=== PATIENT | male | born 1945 | race Caucasian/White ===

== ENCOUNTER → 2018-01-23 11:48 | Outpatient (CLI) | payer MEDICARE, OTHER, SELFPAY ==
--- NOTE | 2018-01-23 | DI.RAD.S_ITS ---
PROCEDURE: XR SHOULDER RT MIN 2V INDICATIONS: RIGHT SHOULDER PAIN TECHNIQUE: 3 views of the shoulder were acquired. COMPARISON: None. FINDINGS: Bones: No acute fractures or dislocations. There is a well-corticated triangular shaped bone density superior to the a.c. joint, possibly old fracture. Hypertrophic changes at the margins of the a.c. joint. Degenerative glenohumeral joint disease associated with marginal bone spur over the humeral head medially. No suspicious bony lesions. Visualized ribs appear intact. Median sternotomy. Soft tissues: No suspicious soft tissue calcifications. IMPRESSION: 1. Osteoarthritis glenohumeral and acromioclavicular joints. 2. Chronic bony density superior to the a.c. joint. Dictated by: Brayan Neumann M.D. on 01/23/2018 at 13:01 Approved by: Brayan Neumann M.D. on 01/23/2018 at 13:04
== END ==
PROVIDERS: Family Provider Family Medicine; PCP Family Medicine; Visit Provider Family Medicine
DX: M19.011 Primary osteoarthritis, right shoulder (principal); M25.511 Pain in right shoulder
CPT/HCPCS: 73030

== ENCOUNTER → 2018-09-02 10:56 | Outpatient (CLI) | payer MEDICARE, SELFPAY ==
--- NOTE | 2018-09-02 | DI.RAD.S_ITS ---
PROCEDURE: XR SHOULDER RT MIN 2V INDICATIONS: RT SHOULDER PAIN TECHNIQUE: 3 views of the shoulder were acquired. COMPARISON: [facility], CR, XR SHOULDER RT MIN 2V, 01/23/2018, 11:35. FINDINGS: Bones: No fractures or dislocations. No suspicious bony lesions. Visualized ribs appear intact. Sternal wires are present including a fractured superior wire, unchanged. There is moderate acromioclavicular degenerative narrowing with an adjacent ossification possibly related to spur or old fracture. Moderate glenohumeral narrowing is present. Soft tissues: No suspicious soft tissue calcifications. IMPRESSION: Stable appearance of glenohumeral and acromioclavicular degenerative narrowing. Dictated by: Sherrill Villanueva M.D. on 09/02/2018 at 13:52 Approved by: Sherrill Villanueva M.D. on 09/02/2018 at 13:54
== END ==
PROVIDERS: PCP Family Medicine; Visit Provider Family Medicine
DX: M25.511 Pain in right shoulder (principal); M19.011 Primary osteoarthritis, right shoulder
CPT/HCPCS: 73030

== ENCOUNTER → 2019-03-26 11:22 | Outpatient (CLI) | payer MEDICARE, SELFPAY ==
--- NOTE | 2019-03-26 | DI.MRI.S_ITS ---
PROCEDURE: MR SHOULDER RT WO CON INDICATIONS: Pain in right shoulder TECHNIQUE: Noncontrast oblique coronal T2 fast spin echo with fat saturation, oblique sagittal T1 spin echo and T2 fast spin echo with fat saturation, axial T1 spin echo and T2 fast spin echo with fat saturation through the shoulder. COMPARISON: [facility], CR, XR SHOULDER RT MIN 2V, 09/02/2018, 11:02. FINDINGS: Image quality: Diagnostic. Rotator cuff: There is a small full-thickness tear just proximal to the footprint of the distal supraspinatus tendon that measures approximately 1.2 cm in transverse dimension. There is mild retraction by approximately 9 mm. Heterogeneity and irregularity with increased signal is noted involving the remainder of the supraspinatus tendon. The anterior and posterior fibers of the supraspinatus tendon are probably intact. Thickening and increased signal is noted involving the infraspinatus tendon with partial-thickness tearing extending along its myotendinous junction. There is low-grade bursal surface partial-thickness tearing involving the subscapularis tendon with corresponding tendinopathy. The teres minor tendon is intact. No significant atrophy of the rotator cuff muscles is evident. Bones and bursae: No acute fracture, dislocation, or suspicious osseous lesion is identified involving the osseous structures of the right shoulder. Moderate degenerative changes of the glenohumeral joint are present with an associated moderate-sized joint effusion. There are severe degenerative changes of the acromioclavicular joint. Fluid is contained within the joint space. Large amount of fluid is also contained within the subacromial subdeltoid bursa. Capsule and soft tissues: Evaluation of the labrum and the glenohumeral ligaments is suboptimal without intra-articular contrast. Thinning and heterogeneity of the labrum probably is related to chronic labral degeneration. No detached large labral tears are evident. No large. Labral cysts are identified. The long head of the biceps tendon is prominently thinned and not definitely seen attaching to the superior glenoid. A chronic full-thickness tear is suspected. No acute injuries are suspected involving the glenohumeral ligaments. IMPRESSION: 1. Small full-thickness tear involving the distal supraspinatus tendon with corresponding tendinopathy. 2. Low-grade partial-thickness tearing and tendinopathy of the infraspinatus and subscapularis tendons. There is an interstitial/delaminating component of the infraspinatus tendon partial thickness tear. 3. Severe degenerative changes of the acromioclavicular joint with a large amount of fluid contained within the subacromial subdeltoid bursa. Please correlate clinically to exclude the possibility of subacromial impingement. 4. Probable chronic full-thickness tear of the long head of the biceps tendon. 5. Moderate degenerative changes of the glenohumeral joint with degenerative labral tearing. 6. Moderate sized glenohumeral joint effusion. Dictated by: Duane Galarza M.D. on 03/26/2019 at 15:49 Approved by: Duane Galarza M.D. on 03/26/2019 at 15:56
== END ==
PROVIDERS: PCP Family Medicine; Visit Provider Physical Medicine & Rehabilitation Pain Medicine
DX: M25.511 Pain in right shoulder (principal); M75.121 Complete rotator cuff tear or rupture of right shoulder, not specified as traumatic; S43.491A Other sprain of right shoulder joint, initial encounter; M25.411 Effusion, right shoulder
CPT/HCPCS: 73221

== ENCOUNTER 2019-05-16 13:20 | Day surgery (SDC) | payer MEDICARE, SELFPAY ==
--- NOTE | 2019-05-16 | PATH_ITS ---
[facility] Accession Number: [id number] . 01 Material submitted: . colon - SIGMOID POLYP 2MM . 01 Clinical history: . SCREENING COLONOSCOPY . 02 Diagnosis: Sigmoid Colon, 2 mm, Polyp: Hyperplastic polyp. MRV 05/19/2019 1005 Local . 02 Electronically signed: . Rafael Brown MD, PhD, Pathologist NPI- [id number] . 01 Gross description: . SIGMOID POLYP 2MM: Received in formalin is 1 fragment(s) of hernandez, soft tissue measuring 0.2 x 0.2 x 0.2 cm submitted entirely in 1 cassette(s) /[facility] 05/16/2019 2240 Local . 02 Pathologist provided ICD-10: K63.5 . 02 CPT . 287223 Performed at: 01 [facility] [address] [place] [address], [place], [place] [id number] MD Isaac Johnson MD Phone: [phone] Performed at: 02 [facility] [address] [place], [place] [id number] MD Muna Ruth MD Phone: [phone]
--- NOTE | 2019-05-16 06:05 | PM.HP.1 ---
History of Present Illness History of Present Illness Date Patient Seen: 05/16/19 Chief complaint: 45838 SCREENING COLONOSCOPY Narrative: 74 year old male comes in today for consideration of a screening colonoscopy. Two previous colonoscopies, 2001 and 2012. 2001 records are not available at time of dictation. Last colonoscopy on 05/07/2013 significant for a 2-3 mm hepatic flexure hyperplastic polyp and ascending tubular adenoma. Sigmoid diverticulosis also noted. There have been no lower GI symptoms suggesting disease such as change in bowel habits, bleeding, abdominal pain or anemia. No family history of colon cancer or colon polyps. Overall health issues have been stable, including no major cardiac events for at least 6 weeks. His best friend of rectal cancer. PCP: Dr. Garcia Past medical history: Coronary artery disease, status post CABG [place], 2015, ECHO 03/11/2016, EF 65-70% Hyperlipidemia Esophageal reflux Prediabetes Melanoma, back Actinic keratosis Lumbar disc herniation with radiculopathy Left sacroiliitis History of herpes zoster Mitral valve prolapse History of hyperplastic colon polyps BMI 23.76 Past Surgical history: CABG x5, 03/16/2016 Family history: Father: Heart disease, CVA, prostate cancer Mother: Kidney failure Siblings: obstructive sleep apnea, alcoholism Social history: , retired. Fourteen years of education. Medications: Metoprolol 25 mg p.o. b.i.d. Atorvastatin 80 mg p.o. q.h.s. Flomax 0.4 mg p.o. q.day Omeprazole 20 mg p.o. q.day Aspirin 81 mg, 2 tabs p.o. q.day CoQ10 300 mg p.o. b.i.d. Allergies: Metformin, causes dyspnea Meds Home Medications and Allergies Home Medications Medication Instructions Recorded Confirmed Type lansoprazole [Prevacid] 30 mg PO QDAY #0 03/08/16 05/16/19 History aspirin 81 mg PO Q DAY #0 03/11/16 05/16/19 History metoprolol tartrate 25 mg PO BID #0 05/19/16 05/16/19 History tamsulosin [Flomax] 0.4 mg PO QDAY #0 05/19/16 05/16/19 History atorvastatin 40 mg PO BEDTIME 05/16/19 05/16/19 History Review of Systems Review of Systems ROS Unobtainable: All systems reviewed & are unremarkable except as noted in HPI and below Exam Narrative Exam Narrative: GENERAL: Alert and oriented, appearing stated age and in no acute distress. HEENT: Head normocephalic/atraumatic. LUNGS: Clear to ausculation bilaterally, no wheezes, rhonchi or rales. CV: Normal S1 and S2 with regular rate and rhythm, no audible murmurs, rubs or gallops. ABDOMEN: Soft, non-tender, non-distended, no organomegaly. Positive bowel sounds. EXTREMITIES: No clubbing, cyanosis, or edema. NEURO: Cranial nerves II through XII grossly intact, no focal deficits. PSYCH: Alert and oriented x 3. SKIN: No concerning lesions. Assessment & Plan Assessment & Plan narrative: 1. History of colon polyps 2. Screening for colon cancer 3. History of sigmoid diverticulosis Plan for colonoscopy. The nature and character of the procedure as well as anticipated results were discussed. The possibility of not completing the procedure was also discussed. Possible complications including aspiration pneumonia, bleeding, perforation and reaction to medications either for sedation or preparation and missed lesions were discussed. Questions were answered and proceeding to the colonoscopy was elected. Informed consent signed. I sincerely appreciate the referral allowing me to participate in this patient's care. Please contact me with any questions or concerns. Time Spent With Patient Time with patient: less than 15 minutes
--- NOTE | 2019-05-16 06:19 | PM.OP.ENDO ---
Operative Date/Time/Diagnoses Date of procedure: 05/16/19 Time of procedure: 14:49 Pre-op diagnosis: 1. History of colon polyps 2. Screening for colon cancer 3. Diverticulosis, sigmoid Post-op diagnosis: other (Sigmoid polyp x1, 2 mm, removed with cold biopsy forceps) Procedure & Clinicians Study performed: Colonoscopy Same procedure as scheduled: Yes Indications: 1. History of colon polyps 2. Screening for colon cancer 3. Diverticulosis, sigmoid Surgeon: Beatriz Silverman Procedure Notes SCOAP/Timeout: 14:49 Procedure in detail: ENDOSCOPIST: Beatriz Silverman MD Sedation RN: Nicole Lopez RN Sedation start time: 2:49 p.m. Sedation end time: 3:12 p.m. PROCEDURE: Colonoscopy with cold biopsy INDICATIONS: 1. History of colon polyps 2. Screening for colon cancer 3. Sigmoid diverticulosis MEDICATION: Levsin 0.125 mg sublingual, incremental doses of Versed and fentanyl until appropriate level sedation achieved. ASA CLASS: 2 CECAL WITHDRAWAL TIME: 11 minutes COMPLICATIONS: None. EXTENT OF PROCEDURE: Cecum. QUALITY OF PREP: Good with portions of liquid stool. PROCEDURE: Prior to insertion of the colonoscope, a digital rectal examination was accomplished with circumferential palpation of the distal rectal mucosa without significant findings being noted. The high-definition pediatric colonoscope was passed into the rectum in the usual fashion and advanced over to the cecum without difficulty. The ileocecal valve, appendiceal stoma, and medial wall all could be inspected and no abnormalities were seen. ASCENDING COLON: As the colonoscope was withdrawn, care was taken to expose and inspect the haustral folds and no abnormalities were seen. HEPATIC FLEXURE: Normal no polyps, diverticula or other abnormalities. TRANSVERSE COLON: Normal no polyps, diverticula or other abnormalities. DESCENDING COLON: Normal no polyps, diverticula or other abnormalities. SIGMOID COLON: 2 mm polyp removed with cold biopsy forceps, moderate sigmoid diverticulosis, noninflamed. RECTUM: Normal. J maneuver was produced. There was no significant perianal disease. The J maneuver was broken. The remainder of the rectum was inspected and there was no external hemorrhoid disease. The scope was withdrawn. IMPRESSION: 1. Sigmoid polyp x1, 2 mm, removed with cold biopsy forceps 2. Sigmoid diverticulosis, moderate PLAN: 1. Follow-up in clinic status post pathology results. The possibility of a missed lesion including a malignancy has been discussed with the patient previously. Potential alarm symptoms have been discussed and should be reported immediately. Scope withdrawal time: 11 minutes Sedation minutes: 23 Findings: diverticulosis and polyp (sigmoid, 2 mm) Specimen(s): other (Sigmoid polyp x 1, 2 mm) Complications: none Impression: As above. Post-procedure Recommendations: Will call with biopsy results Follow up: weeks (2) Disposition: PACU
[2019-05-16] MEDS: HYOSCYAMINE 0.125 MG TABLET PO (13:53)
[2019-05-16 13:56] VITALS: BP 140/84; PULSE 83; RESP 16; TEMP 36.4; O2SAT 96; BMI 21.5
[2019-05-16] MEDS: SODIUM CHLORIDE 0.9% 1,000 ML 200 ML IV (14:09)
[2019-05-16] MEDS: fentaNYL 250 MCG/5 ML INJ IV (15:13)
[2019-05-16] MEDS: MIDAZOLAM 5 MG/5 ML VIAL IV (15:13)
[2019-05-16 15:16] VITALS: BP 130/71; PULSE 31; RESP 15; TEMP 36.8; O2SAT 97
[2019-05-16 15:21] VITALS: BP 126/75; PULSE 62; RESP 12; O2SAT 97
[2019-05-16 15:27] VITALS: BP 120/78; PULSE 66; RESP 12; O2SAT 97
[2019-05-16 15:37] VITALS: BP 130/82; PULSE 61; RESP 15; O2SAT 97
[2019-05-16 16:04] VITALS: BP 143/74; PULSE 64; RESP 16; TEMP 36.3; O2SAT 97
== END 2019-05-16 16:17 | disposition home or self-care (01) ==
PROVIDERS: PCP Family Medicine; Visit Provider Student in an Organized Health Care Education/Training Program
PROC: 0DJD8ZZ Inspection of Lower Intestinal Tract, Via Natural or Artificial Opening Endoscopic (ICD-10-PCS; CPT 45378; principal; 2019-05-16 15:00)
DX: Z12.11 Encounter for screening for malignant neoplasm of colon (principal); Z86.010 Personal history of colon polyps; I25.2 Old myocardial infarction; Z95.1 Presence of aortocoronary bypass graft; I25.10 Atherosclerotic heart disease of native coronary artery without angina pectoris; K63.5 Polyp of colon; K57.30 Diverticulosis of large intestine without perforation or abscess without bleeding
CPT/HCPCS: 45380; J2250; J3010

== ENCOUNTER → 2020-02-09 13:29 | Outpatient (CLI) | payer MEDICARE, SELFPAY ==
--- NOTE | 2020-02-09 | DI.ECHO.S_ITS ---
[facility]---------+ [facility] +---------+ : : [address] [place] : : : : [id number] : : : : Phone: [phone] Echocardiogram Report + + :Name: ADELAIDA MARTINEZ Study Date: 02/09/2020 Height: 70 in : :[facility] Weight: 160 lb : : Gender: Male BSA: 1.9 m2 : :: 1945 Age: 74 yrs BP: 144/86 mmHg: :Reason For Study: Mitral Insufficiency : :Ordering Physician: DIANE, : :MARIA ALEJANDRA Performed By: Alesha Magallanes : :Referring: MARIA ALEJANDRA CONTRERAS : + + Interpretation Summary Left ventricular systolic function remains well-preserved and unchanged from the previous study with an estimated ejection fraction of 60 to 65% with akinesis of the proximal portion of the inferior wall without other wall motion abnormality. Left ventricular volumes remain normal and unchanged. Diastolic function is challenging to assess but left ventricular filling pressures may be somewhat higher compared to the previous study. Otherwise, there has been no significant change. The right ventricle appears normal and unchanged from the previous study. Right ventricular systolic pressure is estimated at 32 mmHg with a CVP of 8 mmHg and is likely unchanged from the previous study. There is severe left atrial enlargement and moderately severe right atrial enlargement, both progressive since the previous study. There continues to be prolapse of the posterior leaflet of the mitral valve producing at least moderate mitral regurgitation with a regurgitant jet directed anteroseptally that appears more prominent compared to the previous study. There is mild to moderate tricuspid regurgitation that is mildly more prominent compared to the previous study.. The ascending aorta is mildly enlarged but unchanged from the previous exam. Procedure: A two-dimensional transthoracic echocardiogram with color flow and Doppler was performed. The study quality was technically adequate. Comparison is made with the echocardiogram of 03/11/2016. The patient was in sinus bradycardia with heart rates between 60-62 bpm during the exam. Left Ventricle: The left ventricle is normal in size and wall thickness. Overall left ventricular systolic function is preserved. The ejection fraction is estimated to be 60-65%. There is akinesis of the proximal third of the inferior wall that is unchanged from the previous study and no other focal wall motion abnormalities. Diastolic function could not be accurately assessed due to contradictory data. Left ventricular filling pressures may be higher compared to the previous study. Otherwise, there is been no significant change since the previous exam. Right Ventricle: The right ventricle is normal in size and function. This is unchanged compared to the previous study. Atria: The left atrium is severely dilated. Both atria have mildly increased in size since the prior echo exam. The right atrium is moderate to severely dilated. There is no Doppler evidence for an interatrial shunt. Mitral Valve: The mitral valve leaflets appear mildly thickened, but open well. There is prolapse of the posterior mitral valve leaflet(s). There is moderate mitral regurgitation. There is an eccentric jet of mitral regurgitation that is directed anteroseptally. This is mild progressive compared to the previous study. Aortic Valve: The aortic valve is trileaflet. The aortic valve opens well. There is no aortic valve stenosis. No aortic regurgitation is present. Tricuspid Valve: The tricuspid valve is normal in structure and function. There is mild to moderate tricuspid regurgitation. This is mildly more prominent compared to the previous study. The right ventricular systolic pressure is estimated to be at least 32 mmHg based on an estimated right atrial pressure of 8 mm Hg. This is unchanged compared to the previous study. Pulmonic Valve: The pulmonic valve leaflets are thin and pliable; valve motion is normal. There is a trace or physiologic amount of pulmonic regurgitation. Great Vessels: The aortic root is normal size. The ascending aorta is mildly enlarged. This is unchanged compared to the previous study. The IVC is dilated (diameter is greater than 2.1 cm) yet it collapses greater than 50% with a sniff. This suggests a right atrial pressure of 8 mm Hg. Pericardium/ Pleura There is no pericardial effusion. There is no pleural effusion. MMode/2D Measurements & Calculations LVIDd: 5.3 cm LVOT diam: 2.1 cm LVIDs: 3.3 cm Ao root diam: 3.2 cm FS: 37.3 % asc Aorta Diam: 3.5 cm EPSS: 0.60 cm Ao Arch Diam (Prox Trans): 2.8 cm IVSd: 0.99 cm LVPWd: 1.0 cm LV parson. diameter/BSA (cm/m^2): 2.8 LV sys. diameter/BSA (cm/m^2): 1.7 LA A2 area: 26.0 cm2 RA long axis: 6.3 cm LA A4 area: 27.0 cm2 RA area: 25.5 cm2 LA length (vol): 6.3 cm RA vol: 88.1 ml LA vol: 94.7 ml RA : 46.4 ml/m2 LA vol index: 49.9 ml/m2 IVC diam: 2.7 cm RVD1 (basal): 3.5 cm Doppler Measurements & Calculations Ao V2 max: 144.8 cm/sec LVOT Max Jame: 96.1 cm/sec Ao V2 mean: 95.5 cm/sec LV V1 max P.7 mmHg Ao max P.4 mmHg LV V1 VTI: 20.3 cm Ao mean P.2 mmHg CANDACE(I,D): 2.4 cm2 Ao V2 VTI: 29.7 cm CANDACE(V,D): 2.3 cm2 sev ratio: 0.68 CANDACE indexed to BSA (cm^2/m^2): 1.3 MV E max jame: 68.3 cm/sec TR max jame: 245.1 cm/sec MV A max jame: 56.7 cm/sec TR max P.0 mmHg MV E/A: 1.2 PA V2 max: 67.6 cm/sec Med Peak E' Jame: 5.9 cm/sec PA V2 mean: 42.4 cm/sec E/E' med: 11.5 PA mean P.85 mmHg Lat Peak E' Jame: 8.2 cm/sec PA pr(Accel): 44.7 mmHg E/E' lat: 8.3 E/e' average: 9.9 MV dec time: 0.24 sec MR ERO: 0.25 cm2 MR PISA: 3.5 cm2 SV(LVOT): 71.3 ml MR flow rate: 149.4 cm3/sec MR PISA radius: 0.74 cm Reading Physician:02:27 PM
== END ==
PROVIDERS: PCP Family Medicine; Referring Provider Family Medicine; Visit Provider Hospitalist
DX: I08.1 Rheumatic disorders of both mitral and tricuspid valves (principal); I77.89 Other specified disorders of arteries and arterioles
CPT/HCPCS: 93306

== ENCOUNTER → 2020-02-10 06:36 | Outpatient (CLI) | payer MEDICARE, SELFPAY ==
[2020-02-10 09:05] LABS: Cholesterol 125 mg/dL (140-199); HDL Cholesterol 37 mg/dL (40-60); LDL Cholesterol Calculated 65 mg/dL (<100); Triglycerides 114 mg/dL (35-150)
== END ==
PROVIDERS: PCP Family Medicine; Referring Provider Hospitalist; Visit Provider Hospitalist
DX: I25.10 Atherosclerotic heart disease of native coronary artery without angina pectoris (principal); E78.5 Hyperlipidemia, unspecified
CPT/HCPCS: 36415; 80061

== ENCOUNTER 2021-01-03 01:07 | Emergency (ER) | payer MEDICARE, SELFPAY ==
[2021-01-03 01:40] VITALS: BP 185/89; PULSE 66; RESP 18; TEMP 36.5; O2SAT 98; BMI 50.5
--- NOTE | 2021-01-03 02:04 | DI.CT.S_ITS ---
PROCEDURE: CT KIDNEY URETER BLADDER (KUB) COMPARISON: None. INDICATIONS: flank pain FINDINGS: Nonobstructive 6 mm right mid renal collecting system calculus. No evidence of hydroureter or bladder calculus. Elsewhere the examination shows no acute disease. The remaining solid and hollow organs are well visualized considering absence of both oral and intravenous contrast. IMPRESSION: Nonobstructing 6 mm right renal collecting system stone, no sign of ureteral stone. No source of acute onset abdominal pain is identified. The history of pain is predominantly left-sided and a ear in areas tract stone on the left is not found. Dictated by: Waldo Graham M.D. on 01/03/2021 at 11:32 Approved by: Waldo Graham M.D. on 01/03/2021 at 11:34
[2021-01-03] MEDS: KETOROLAC 30 MG/ML VIAL 15 MG IV (02:15)
[2021-01-03 02:17] LABS: Add Manual Diff / Slide Review NO; Basophils Absolute Auto 100 /uL (0-100); Basophils Percent Auto 0.9 % (0-2); Eosinophils Absolute Auto 200 /uL (0-450); Eosinophils Percent Auto 3.4 % (2-4); Hematocrit 46.3 % (41-53); Hemoglobin 15.8 g/dL (13.5-17.5); Lymphocytes Absolute Auto 1600 /uL (1100-4500); Lymphocytes Percent Auto 22.6 % (25-40); Mean Corpuscular Hemoglobin 31.4 PG (26-34); Mean Corpuscular Volume 92.3 fL (80-100); Monocytes Absolute Auto 500 /uL (0-900); Monocytes Percent Auto 6.3 % (3-14); Neutrophils Absolute Auto 4800 /uL (1500-7000); Neutrophils Percent Auto 66.8 % (50-75); Platelet Count 144 X10^3/uL (150-400); Red Blood Cell Count 5.02 X10^6/uL (4.5-5.9); Red Cell Distribution Width 13.5 % (11.6-14.8); White Blood Cell Count 7.2 X10^3/uL (4.5-11.0)
--- NOTE | 2021-01-03 02:21 | ED.ABDPAIN ---
HPI - Abdominal Pain General Chief Complaint: Abdominal Pain Stated Complaint: Back and hip pain, unable to urinate Time Seen by Provider: 01/03/21 01:11 Source: patient Mode of arrival: Ambulatory Limitations: no limitations History of Present Illness HPI narrative: 75-year-old male nonsmoker with history of lumbar radiculopathy prostate trouble and hypertension as well as hyperlipidemia presents with a chief complaint of severe left-sided pain that radiates from his lower back around his flank into his groin and at times down his left leg. He has a history of lumbar radiculopathy and states this on some levels feels similar. He had some difficulty in urinating earlier and had pain and a full bladder but has since urinated and feels much better. He is not dizzy nor weak or lightheaded. He denies any fever or chills. He denies chest pain or shortness of breath. He states his pain is worse with motion and improves with rest. He denies any footdrop, lower extremity weakness, recent travel, blood thinners or fever. Related Data Home Medications Medication Instructions Recorded Confirmed lansoprazole 30 mg capsule,delayed 30 mg PO QDAY #0 03/08/16 05/16/19 release (Prevacid) aspirin 81 mg tablet,delayed 81 mg PO Q DAY #0 03/11/16 05/16/19 release metoprolol tartrate 25 mg tablet 25 mg PO BID #0 05/19/16 05/16/19 tamsulosin 0.4 mg capsule (Flomax) 0.4 mg PO QDAY #0 05/19/16 05/16/19 atorvastatin 40 mg tablet 40 mg PO BEDTIME 05/16/19 05/16/19 Previous Rx's Medication Instructions Recorded gabapentin 300 mg capsule 300 mg PO BEDTIME #14 cap 01/03/21 (Neurontin) methylprednisolone 4 mg tablets in See Rx Instructions .ROUTE 01/03/21 a dose pack (Medrol (Chidi)) .COMPLEX #21 ea oxycodone 5 mg tablet 5 mg PO Q4-6H PRN #10 tab 01/03/21 Allergies Allergy/AdvReac Type Severity Reaction Status Date / Time No Known Drug Allergies Allergy Verified 01/03/21 01:48 Review of Systems Review of Systems Narrative: GENERAL: Denies chills, fatigue, malaise, fever, sweats. HEENT: Denies sinus pain, ear pain, sore throat, difficulty swallowing, dizziness. RESPIRATORY: Denies dyspnea, cough, wheezing, hemoptysis, sputum. CARDIOVASCULAR: Denies chest pain, palpitations, orthopnea, edema, GASTROINTESTINAL: Denies nausea, vomiting, abdominal pain, diarrhea, constipation, melena. : See HPI MUSCULOSKELETAL: denies weakness, joint pain, or bony pain SKIN: Denies rash, skin lesions, or other NEUROLOGIC: See HPI. PSYCHIATRIC: No concerning psychosocial issues. 12 point review of systems is negative except for those stated above Patient History Social History household members: spouse Smoking Status: Never smoker Smoking Status: Never smoker alcohol intake frequency: holidays/special occasions only Substance Use Type: does not use Exam Narrative Exam Narrative: GENERAL: [75] year old patient appears stated age. Well-developed patient, in mild distress. Obviously uncomfortable HEAD: Atraumatic. Normocephalic. EYES: Pupils equal round and reactive. Extraocular motions intact. No scleral icterus. No injection or drainage. ENT: Nose without bleeding, purulent drainage. Throat without erythema, tonsillar hypertrophy or exudate. Airway patent. NECK: Trachea midline. Non tender CARDIOVASCULAR: Regular rate and rhythm without murmurs, gallops, or rubs. RESPIRATORY: Clear to auscultation. Breath sounds equal bilaterally. No wheezes, rales, or rhonchi. GASTROINTESTINAL: Abdomen soft, non-tender, nondistended. EXTREMITIES: No edema or joint tenderness. BACK: warp dyeing vat tender but free of any obvious external abnormalities. Patient exam notes decreased range of motion and muscle spasm, but no CVA tenderness, or vertebral point tenderness. There are no symptoms of cauda equina such as saddle anesthesia, and decreased reflexes, decreased sensation or strength. NEURO: AOx3. SKIN: No rash or erythema of visible areas Initial Vital Signs Initial Vital Signs: Vital Signs Temperature 97.7 F 01/03/21 01:40 Pulse Rate 66 01/03/21 01:40 Respiratory Rate 18 01/03/21 01:40 Blood Pressure 185/89 H 01/03/21 01:40 Pulse Oximetry 98 01/03/21 01:40 Course Orders Ordered: ED Orders 01/03/21 01:35 Complete Blood Count AUTO DIFF Stat Comprehensive Metabolic Panel Stat Lipase Stat 01/03/21 02:04 CT kidney ureter bladder (KUB) Stat Lactated Ringer's (Lactated Ringers) 1,000 mls @ 150 mls/hr IV CONT FERNANDO Last Admin: 01/03/21 02:35 Dose: 150 mls/hr Documented by: MANASA Discontinued Medications Dexamethasone (Dexamethasone 10 Mg/Ml Vial) 6 mg IV NOW ONE Stop: 01/03/21 02:05 Last Admin: 01/03/21 02:36 Dose: 6 mg Documented by: MANASA Sodium Chloride (Normal Saline 0.9%) 1,000 mls @ 150 mls/hr IV CONT FERNANDO Ketorolac Tromethamine (Ketorolac 30 Mg/Ml Vial) 15 mg IV NOW ONE Stop: 01/03/21 02:05 Last Admin: 01/03/21 02:15 Dose: 15 mg Documented by: MANASA Vital Signs Vital signs: Vital Signs - 8 hr 01/03/21 01:40 Temperature 97.7 F Pulse Rate 66 Respiratory Rate 18 Blood Pressure 185/89 H Pulse Oximetry 98 MDM - Abdominal Pain Lab Data Result diagrams: 01/03/21 01:35 01/03/21 01:35 Labs: Lab Results 01/03/21 01/03/21 Range/Units 01:35 01:35 WBC 7.2 (4.5-11.0) X10^3/uL RBC 5.02 (4.5-5.9) X10^6/uL Hgb 15.8 (13.5-17.5) g/dL Hct 46.3 (41-53) % MCV 92.3 (80-100) fL MCH 31.4 (26-34) PG MCHC 34.0 (30-36) % RDW 13.5 (11.6-14.8) % Plt Count 144 L (150-400) X10^3/uL Neut % (Auto) 66.8 (50-75) % Lymph % (Auto) 22.6 L (25-40) % Ware % (Auto) 6.3 (3-14) % Eos % (Auto) 3.4 (2-4) % Baso % (Auto) 0.9 (0-2) % Neut # (Auto) 4800 (6925-6791) /uL Lymph # (Auto) 1600 (2533-3095) /uL Ware # (Auto) 500 (0-900) /uL Eos # (Auto) 200 (0-450) /uL Baso # (Auto) 100 (0-100) /uL Sodium 140 (137-145) mmol/L Potassium 3.9 (3.4-5.1) mmol/L Chloride 108 H (98-107) mmol/L Carbon Dioxide 24 (22-32) mmol/L BUN 23 H (9-20) mg/dL Creatinine 0.77 (0.66-1.25) mg/dL Estimated GFR > 60.0 (>60) mL/min BUN/Creatinine Ratio 29.9 H (6-22) Glucose 136 H (80-110) mg/dL Calcium 9.3 (8.4-10.2) mg/dL Total Bilirubin 0.5 (0.2-1.3) mg/dL AST 29 (17-59) IU/L ALT 24 (<50) IU/L Alkaline Phosphatase 121 (38-126) U/L Total Protein 7.0 (6.3-8.2) g/dL Albumin 4.3 (3.5-5.0) g/dL Globulin 2.7 (1.7-4.1) g/dL Albumin/Globulin Ratio 1.6 (1.0-2.8) Lipase 107 (23-300) U/L Imaging Data CT scan - abdomen/pelvis: Radiologist's Impression: Nephrolithiasis of anterior right kidney up to 6 mm no right hydronephrosis, mild mucosal thickening of the gastric mucosa, normal appendix, his colonic fecal burden MDM Narrative Medical decision making narrative: Multiple diagnoses considered including kidney stone, pyelonephritis, both thought unlikely given lack of findings on CT or urine. Patient has longstanding history of musculoskeletal trouble and with pain starting in back and radiating down into his legs seems to be the most likely cause. He has no neurologic red flags such as saddle anesthesia, lower extremity weakness depressed reflexes or other signs of cauda equina. Return precautions given and questions answered to his apparent satisfaction Discharge Plan Departure Patient Disposition: Home Clinical Impression: Acute left lumbar radiculopathy Instructions: DI for Lumbar Radiculopathy Activity Restrictions/Additional Instructions: *You have been diagnosed with [lumbar radiculopathy] *What to do: *Please continue to take your regular medications as directed. [x ] New medication prescriptions sent to your pharmacy: [ [facility]] [ ] New medication written as a paper prescription [ ] No new medications given *Please follow up with your primary care provider in 2-3 days, call for an appointment. Let them know you were seen in the Emergency Department and that we ask that you be seen in follow up. We will electronically transmit a record of today's note if your PCP is in our system *If you do not have a primary care provider please contact the [facility] Resource line at [phone]. They will ask some questions about your medical history and help get you set up with a doctor in the community. *Return to Emergency Department if you should have any new, worsening or concerning symptoms, such as [fever greater than 101 F, shaking chills, worsening pain, persistent vomiting or other bothersome symptoms] Prescriptions: New oxycodone 5 mg tablet 5 mg PO Q4-6H PRN (Reason: pain) Qty: 10 RF: 0 gabapentin [Neurontin] 300 mg capsule 300 mg PO BEDTIME Qty: 14 RF: 0 methylprednisolone [Medrol (Chidi)] 4 mg tablets,dose pack See Rx Instructions .ROUTE .COMPLEX Qty: 21 RF: 0 No Action lansoprazole [Prevacid] 30 MG capsule,delayed release(DR/EC) 30 mg PO QDAY Qty: 0 RF: 0 aspirin 81 MG tablet,delayed release (DR/EC) 81 mg PO Q DAY Qty: 0 RF: 0 tamsulosin [Flomax] 0.4 MG capsule,extended release 24hr 0.4 mg PO QDAY Qty: 0 RF: 0 metoprolol tartrate 25 MG tablet 25 mg PO BID Qty: 0 RF: 0 atorvastatin 40 mg Tablet 40 mg PO BEDTIME RF: 0 Referrals: Brock Garcia MD [Primary Care Provider] -
[2021-01-03 02:22] LABS: Alanine Aminotransferase 24 IU/L (<50); Albumin 4.3 g/dL (3.5-5.0); Albumin Globulin Ratio 1.6 (1.0-2.8); Alkaline Phosphatase 121 U/L (38-126); Aspartate Aminotransferase 29 IU/L (17-59); BUN Creatinine Ratio 29.9 (6-22); Bilirubin Total 0.5 mg/dL (0.2-1.3); Blood Urea Nitrogen 23 mg/dL (9-20); Calcium 9.3 mg/dL (8.4-10.2); Carbon Dioxide 24 mmol/L (22-32); Chloride 108 mmol/L (98-107); Estimated Glomerular Filt Rate > 60.0 mL/min (>60); Globulin 2.7 g/dL (1.7-4.1); Glucose 136 mg/dL (80-110); HEMOLYSIS 25 (0-50); Lipase 107 U/L (23-300); Potassium 3.9 mmol/L (3.4-5.1); Sodium 140 mmol/L (137-145)
[2021-01-03] MEDS: LACTATED RINGERS 1,000 ML 150 ML IV (02:35)
[2021-01-03] MEDS: DEXAMETHASONE 10 MG/ML VIAL 6 MG IV (02:36)
[2021-01-03] MEDS: OXYCODONE/APAP 5/325 PREPACK 1 BOTTLE MISC (04:53)
[2021-01-03 05:03] VITALS: BP 166/80; PULSE 66; RESP 14; O2SAT 96
== END 2021-01-03 05:05 | disposition home or self-care (01) ==
PROVIDERS: Emergency Provider Emergency Medicine; PCP Family Medicine
DX: M54.16 Radiculopathy, lumbar region (principal)
CPT/HCPCS: 36415; 74176; 80053; 83690; 85025; 96361; 96374; 96375; 99284; J1100; J1885

== ENCOUNTER → 2021-01-20 11:34 | Outpatient (CLI) | payer MEDICARE, SELFPAY ==
--- NOTE | 2021-01-20 11:34 | DI.MRI.S_ITS ---
PROCEDURE: MR LUMBAR SPINE WO CON INDICATIONS: Low back pain TECHNIQUE: Noncontrast sagittal T1 spin echo and T2 fast echo, sagittal STIR, axial T1 and T2 fast spin echo through the lumbar spine. In cases with scoliosis, additional coronal T2 fast spin echo may be performed. COMPARISON: [facility] [place], [place], XR LUMBAR SPINE WITH OLBIQUES PLUS FLEXION EXTENSION, 01/12/2021, 9:52. FINDINGS: Image quality: Excellent. Alignment and Curvature: There is trace L1-L2 and L2-L3 retrolisthesis. There is mild L4-L5 anterolisthesis. Bone Marrow: Mar reactive endplate changes noted adjacent to the L5-S1 disc. No acute vertebral body compression fractures. Spinal Cord: Conus medullaris terminates at the L1 level. Visualized cord demonstrates normal signal and size. Paraspinous Soft Tissues: No paravertebral masses. T12-L1: Loss of disc signal. Mild, diffuse disc bulge. No central stenosis. No neural foraminal narrowing. No neural compression. L1-L2: Loss of disc signal. Mild, diffuse disc bulge. Mild bilateral facet hypertrophy. Mild narrowing of the central canal. Mild to moderate bilateral neural foraminal narrowing. No neural compression L2-L3: Loss of disc signal. Mild, diffuse disc bulge. Small central disc protrusion. Mild bilateral facet hypertrophy. Moderate to severe narrowing of the central canal. Moderate bilateral neural foraminal narrowing. No neural compression. L3-L4: Loss of disc signal. Moderate, diffuse disc bulge. Moderate bilateral facet hypertrophy. Severe narrowing of the central canal with compression of the traversing nerve roots of the cauda equina. Moderate to severe bilateral neural foraminal narrowing with slight compression of the exiting L3 nerve roots. L4-L5: Loss of disc signal. Mild, diffuse disc bulge. Moderate bilateral facet hypertrophy. Moderate narrowing of the central canal. Moderate bilateral neural foraminal narrowing. No neural compression. Fissure noted in the posterior annulus. L5-S1: Loss of disc signal. Mild, diffuse disc bulge. Moderate bilateral facet hypertrophy. Mild narrowing of the central canal. Severe right and mild left neural foraminal narrowing with compression of the exiting right L5 nerve root. Fissures noted in the posterior annulus. IMPRESSION: 1. Multilevel degenerative disc disease. 2. Multilevel facet arthropathy. 3. Severe L3-L4 central canal narrowing with compression of the nerve roots of the cauda equina. 4. Severe right L5-S1 neural foraminal narrowing with compression of the exiting right L5 nerve root. Moderate to severe bilateral L3-L4 neural foraminal narrowing with slight compression of the exiting bilateral L3 nerve roots. Dictated by: Lynne Hicks MD, PhD on 01/20/2021 at 14:53 Approved by: Lynne Hicks MD, PhD on 01/20/2021 at 14:59
== END ==
PROVIDERS: PCP Family Medicine; Referring Provider Physical Medicine & Rehabilitation Pain Medicine; Visit Provider Physical Medicine & Rehabilitation Pain Medicine
DX: M54.5 Low back pain (principal); M51.36 Other intervertebral disc degeneration, lumbar region; M51.37 Other intervertebral disc degeneration, lumbosacral region; M47.816 Spondylosis without myelopathy or radiculopathy, lumbar region; M47.817 Spondylosis without myelopathy or radiculopathy, lumbosacral region; M48.061 Spinal stenosis, lumbar region without neurogenic claudication; M48.07 Spinal stenosis, lumbosacral region
CPT/HCPCS: 72148

== ENCOUNTER → 2021-05-17 10:03 | Outpatient (CLI) | payer MEDICARE, SELFPAY ==
--- NOTE | 2021-05-17 15:49 | DIAB.INIT ---
Addendum entered by Micaela Israel 05/17/21 16:03: If pt wants to check BG, provided BG goals per ADA: FBG 80-130 mg/dl and 1-2 hr pc <180 mg/dl Original Note: Initial Diabetes Education Assessment Name: Fantasma Romo Date: 05/17/21 Time: 10 Dx: Type 2 Diabetes Provider: Radha Klein Learning Style: watching, hands-on Fantasma presents today for initial DM education with his , Bruna. States he has had prediabetes for a number of years but was recently diagnosed with DM. Endorses FH of DM with paternal grandmother and maternal aunts. States he lost 30# after heart surgery and learning a lot about diet with the cardiac rehab [facility] program. Current reported weight is 153#. Reports UBW 150-160#. States he is allergic to Metformin (SOB). No current DM medications. Interested in nutrition education and BG monitoring info. Brought a meter from 2016 today. Also has questions about carb counting and recipes. Diet recall indicates high carb intake with raisin bran cereal in the morning (100g CHO). Inconsistent protein intake. Has been using whole milk because it has less sugar. Uses higher fiber carbs usually, ie whole grain, whole wheat. Interested in DM ed classes. Physical Activity: States he tries to stay active with home projects. Tries to walk as much as possible. Occasional beach walk. Tries to park far to increase steps. Goes hunting 1 or more times per year. Looking into getting an elliptical. Self-Monitoring Blood Glucose: Brought an old meter and is wanting instruction on use. Discussed how strips are and meter likely needs to be replaced for increased accuracy, if he wants to check BG. Provided SMBG demonstration, BG was 132 mg/dL prior to lunch. Diabetes Medications: None Past Medical History: STY, HTN, CA bypass, [place], HLD, CAD s/p CABG, reflux, melanoma, colonic polyp, sholder pain, actinic keratosis, lumbar disc herniation, urinary freq, sacroilitis, lower back pain, herpes zoster, mitral valve prolapse Pertinent Labs: HgA1c: 6.9% Intervention: This participant was very receptive. Provided appropriate educational handouts. Discussed the following topics: Completed intake assessment. Discussed barriers to care. Pathophysiology of type 2 diabetes HgA1c, its correlation to blood glucose numbers, Demonstration and education SMBG Self-monitoring, how often, and when to check. Suggested checking at different times to evaluate meals Plate Method, impact of macronutrients on blood sugar, meal timing, carbohydrate counting, pairing macronutrients and spreading out carbohydrates for better blood glucose management General recommended servings for carbohydrates at meals and snacks Role of physical activity and following provider guidelines for safety Created SMART goals for patient self-care and success. Goals: Check BG 1 x per day Keep cereal to one cup Add protein to meals and snacks Follow-up: PATRICIA DUVALL follow-up in 2-3 weeks Micaela Israel RDN, [facility] Certified Diabetes Care and Geological Drafter P: [phone] Thank you for this referral
== END ==
PROVIDERS: PCP Family Medicine; Referring Provider Family Medicine; Visit Provider Family Medicine
DX: E11.9 Type 2 diabetes mellitus without complications (principal)
CPT/HCPCS: G0108

== ENCOUNTER → 2021-05-31 09:59 | Outpatient (CLI) | payer MEDICARE, SELFPAY ==
--- NOTE | 2021-05-31 16:51 | DIAB.MNT ---
Initial Diabetes Medical Nutrition Therapy Assessment Name: Fantasma Romo Date: 05/31/21 Time: [id number] Dx: Type II Diabetes Fantasma presents with his Bruna today. States he is hard of hearing and forgot his hearing aids. He is able to hear me as long as speak directly toward him. Has many nutrition questions today. States they have close family friends that have been encouraging them to make nutrition choices off, what sounds like, a fad diet book. Fantasma has questions about whether he can eat fruit, what fat type to choose for milk, and whether he can have whole grain bread in moderation. States he has switched to 2% milk from whole milk. Was under the impression that there were more carbs in the lower fat milk. Diet recall indicates small portions and low carb intake (since changing breakfast-- reduced portion to 1c cereal now. Oatmeal may be 1 or more cups). States he is always hungry, which may be due to the small portions and no snacks. They are conscious of their salt intake. Though they have been eating refried beans recently (canned and high in Na). Having fish 1 or more x per week, which is a challenge for him. Attributes the big change in hgA1c this year to high carb intake over the summer, ie pies, baked beans with burgers and potatoes, etc. Likes to bake with sugar substitute (muffins sweetened with trulia, banana, and small amt honey) Diet Recall: B: cheese, eggs, toast with avocado OR oatmeal with milk OR cereal x 1c L: slice bread with cheese, vegetables or smoothie (20g CHO) D: 1.5c beans with vegetables OR 2-3oz protein with 1/3c brown rice Anthropometrics: Ht: 5'10 Wt: 153# (last visit) Weight history: reports UBW of 150-160# Physical Activity: Plans to roll picker elliptical this week. No current program. Self-Monitoring Blood Glucose: Not currently checking. Bruna reports she really wants him to check to see how food impacts his BG. He is open to this, but was originally planning to wait until PCP visit in July. Diabetes Medications: None Past Medical History: STY, HTN, CA bypass, [place], HLD, CAD s/p CABG, reflux, melanoma, colonic polyp, sholder pain, actinic keratosis, lumbar disc herniation, urinary freq, sacroilitis, lower back pain, herpes zoster, mitral valve prolapse Pertinent Labs: HgA1c: 6.9% Nutrition Rx: Carbohydrates: Meal:45g Snack: 15-30g Nutrition Diagnosis: - Nutrition and food related knowledge deficit r/t new dx T2DM aeb HgA1c 6.9% and pt report - Inconsistent protein intake r/t nutrition knowledge deficit aeb diet recall Intervention: This participant was very receptive. Provided appropriate educational handouts. Discussed the following topics: Completed intake assessment. Discussed barriers to care. HgA1c and potential reasons for the elevation fad diets vs nutrition therapy recs. Satisfying hunger by increasing complex carbs in moderation or lean proteins or adding balanced snacks He can continue low carb diet if desired, but may want to consider increasing intake moderately for satiety. self-monitoring: if he decides to check BG sooner he can call PCP. Plate Method, impact of macronutrients on blood sugar, meal timing, carbohydrate counting, label reading, pairing macronutrients and spreading out carbohydrates for better blood glucose management Recommended servings for carbohydrates at meals and snacks Heart health nutrition, alternative refried beans recipe (homemade) Brainstormed appropriate meal plan based on food preferences Role of physical activity and following guidelines for safety Created SMART goals for patient self-care and success. Goals: Check BG 1 x per day if desired- in progress Keep cereal to one cup - met Add protein to meals and snacks- in progress Stick with lower fat milk- new Add nuts to oatmeal- new Try measuring oatmeal after cooked- new Follow-up: PATRICIA DUVALL follow-up in July. Fantasma would like to attend DM ed class series. Classes begin again in July. He also has the opportunity for additional 1:1 follow-up but would like to wait until next year. Encouraged him to call with any questions prior to that time. Micaela Israel RDN, [facility] Certified Diabetes Care and Size Stamper P: [phone] Thank you for this referral
== END ==
PROVIDERS: PCP Family Medicine; Referring Provider Family Medicine; Visit Provider Family Medicine
DX: E11.9 Type 2 diabetes mellitus without complications (principal); Z71.3 Dietary counseling and surveillance
CPT/HCPCS: 97802

== ENCOUNTER → 2021-07-05 09:15 | Outpatient (CLI) | payer MEDICARE, SELFPAY ==
--- NOTE | 2021-07-06 10:07 | DIAB.FU ---
Diabetes Education Class Series: Diabetes and Nutrition Name: Fantasma Romo Date: 07/05/21 Time: 665a-12p Dx: Type II Diabetes Fantasma presents with his , Bruna, for DM ed classes. States he feels that he and his are already implementing a lot of these nutrition recs. Reports he was unaware of how to read a food label correctly prior to today. Reports subtracting protein from carbs to determine carb amt. States they are currently looking for an exercise machine. Class topics covered: ? Debunk nutrition myths and discuss how to sustain healthy eating long-term through moderation and variety ? Define macronutrients and determine their impact on blood sugars ? Discuss macronutrient pairing, Plate Method, and carb counting ? Review general recommendations for carbohydrates ? Practice label reading ? Discuss the role of fiber in diabetes and provide examples of sources ? Review heart health nutrition: fats, fiber, and sodium ? Determine recommendations for grocery shopping and eating out ? Discuss alcohol recommendations ? Review the role of substitute sugars in diabetes management ? Set SMART goals Goal Set: Read food labels for net carbs (total carbs minus fiber). Follow-up: Diabetes Physiology and Medication Class in one week Micaela Israel RDN, [facility] Registered Dietitian, Certified Diabetes Care and Commercial Intelligence Manager [phone] [email or web address]
== END ==
PROVIDERS: PCP Family Medicine; Referring Provider Family Medicine; Visit Provider Family Medicine
DX: E11.9 Type 2 diabetes mellitus without complications (principal)
CPT/HCPCS: G0109

== ENCOUNTER → 2021-07-12 09:25 | Outpatient (CLI) | payer MEDICARE, SELFPAY ==
--- NOTE | 2021-07-12 14:54 | DIAB.FU ---
Diabetes Education Class Series: Diabetes Physiology and Medications Name: Fantasma Romo Date: 07/12/21 Time: [id number] Fantasma presents today for class with his for support. States blood sugars have been very well managed. Also reports working on his blood pressure with provider. Class topics covered: ? Diabetes pathophysiology ? Discuss different types of diabetes ? Review criteria for diagnosing diabetes ? Review HgA1c measurement and associated blood sugars ? Review blood sugar monitoring safety, technique, and goals ? Discuss ways to reduce complications associated with diabetes, includes microvascular and macrovascular complications ? Review diabetes medications types, action, and side effects ? Health care visits recommended for people with T2DM ? Immunization recommended for people with T2DM ? SMART goals review Goal Set: Fantasma would like to check his BG twice per week: FBG and pc Follow-up: Diabetes Lifestyle and Ongoing Support Class next week Micaela Israel RDN, [facility] Registered Dietitian, Certified Diabetes Care and Regulatory Lead [phone] [email or web address]
== END ==
PROVIDERS: PCP Family Medicine; Referring Provider Family Medicine; Visit Provider Family Medicine
DX: E11.9 Type 2 diabetes mellitus without complications (principal)
CPT/HCPCS: G0109

== ENCOUNTER → 2021-07-19 09:24 | Outpatient (CLI) | payer MEDICARE, SELFPAY ==
--- NOTE | 2021-07-19 15:55 | DIAB.FU ---
Diabetes Education Class Series: Diabetes Lifestyle Change and Ongoing Support Name: Fantasma Romo Date: 07/19/21 Time: [id number] Fantasma presents today with his as support. States he feels that DSME has opened his eyes to how to better manage DM. States he has been using the snack list as a reference and choosing heart healthier fats. Reports his diet is going very well. Does endorse difficulty with getting a physical activity program going. Still looking to purchase workout equipment. Class topics covered: ? Discuss the difference between physical activity and exercise ? Determine physical activity benefits and impact on diabetes ? Review physical activity recommendations and safety ? Discuss emergency preparedness ? Discuss diabetes and emotions (diabetes burnout/distress) ? Review and practice stress management techniques ? Review support groups and community resources ? Discuss the role of family support in diabetes care ? What is going well? Challenges of diabetes? ? Set SMART goals Follow-up: 1:1 visit follow-up 08/23/21 Micaela Israel RDN, [facility] Registered Dietitian, Certified Diabetes Care and Director Instructional Material [phone] [email or web address]
== END ==
PROVIDERS: PCP Family Medicine; Referring Provider Family Medicine; Visit Provider Family Medicine
DX: E11.9 Type 2 diabetes mellitus without complications (principal)
CPT/HCPCS: G0109

== ENCOUNTER → 2021-08-23 09:52 | Outpatient (CLI) | payer MEDICARE, SELFPAY ==
--- NOTE | 2021-08-23 13:36 | DIAB.MNTFU ---
Follow-up Diabetes Medical Nutrition Therapy Assessment Name: Fantasma Romo Date: 08/23/21 Time: 10 Dx: Type II Diabetes Fantasma presents with Bruna, his , for follow-up regarding T2DM. States his HgA1c has reduced to 6.4%. He also reports a recent addition to medications, lisinopril. Endorses well managed BP at home. Diet recall does indicate high carb at breakfast (cereal, toast, with low carb yogurt), very low carb/moderate protein at lunch, and balanced dinner. States he is often hungry after lunch. Also has questions about exercise equipment and keto diet. States close friends are doing keto. He is not interested in trying, but is curious of what it is exactly. States these friends have encouraged high saturated fat intake and low carb. Also has questions about spam sodium content for hunting. Also has questions regarding how much fruit to eat. Anthropometrics: Ht: 5'10 Wt: 155# (reported) Weight history: reports UBW of 150-160# Physical Activity: No program. Continues to have questions about purchasing exercise equipment. States they have purchased a bowflex machine before that was not what they thought it was. Now worried about ordering something without seeing it in person. Problem is that they have a difficult time finding one in person. Would like an elliptical. 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 Bruna reports she has left this decision up to Fantasma. Self-Monitoring Blood Glucose: Checks in frequently. Fasting often in range. Did have one elevated pc readings of 200 after a large meal. Diabetes Medications: None Past Medical History: STY, HTN, CA bypass, MS, HLD, CAD s/p CABG, reflux, melanoma, colonic polyp, sholder pain, actinic keratosis, lumbar disc herniation, urinary freq, sacroilitis, lower back pain, herpes zoster, mitral valve prolapse Pertinent Labs: initial: HgA1c: 6.9%; new reported: 6.4% Nutrition Rx: Carbohydrates: Meal:45g Snack: 15-30g Nutrition Diagnosis: - Nutrition and food related knowledge deficit r/t new dx T2DM aeb HgA1c 6.9% and pt report- improved - Inconsistent protein intake r/t nutrition knowledge deficit aeb diet recall - improved - Physical inactivity r/t difficulty choosing elliptical machine aeb pt report- new Intervention: This participant was very receptive. Provided appropriate educational handouts. Discussed the following topics: Meal timing, pairing macronutrients and spreading out carbohydrates for better blood glucose management Breakfst ideas Heart health nutrition: fats, fiber, and sodium Keto vs moderation/sustainability for them Meal/snack planning Physical activity plan and progress Choosing the elliptical that works for them Created SMART goals for patient self-care and success. Goals: Stick with lower fat milk- met Add nuts to oatmeal- met Try measuring oatmeal after cooked- not met order elliptical- new Move toast to mid morning snack to reduce breakfast carbs- new Enjoy one fruit with lunch prn- new Follow-up: PATRICIA DUVALL follow-up prn. Fantasma seems to be managing his DM very well. Encouraged him and Bruna to call or message me with any follow-up needs or questions. They agreed to this plan. Micaela Israel RDN, [facility] Certified Diabetes Care and Business Information Consultant P: [phone] Thank you for this referral
== END ==
PROVIDERS: PCP Family Medicine; Referring Provider Family Medicine; Visit Provider Family Medicine
DX: E11.9 Type 2 diabetes mellitus without complications (principal); Z71.3 Dietary counseling and surveillance
CPT/HCPCS: 97803

== ENCOUNTER → 2021-09-05 13:58 | Outpatient (CLI) | payer MEDICARE, SELFPAY ==
[2021-09-05 17:14] LABS: COVID19 -Nasal RAPID Negative (Negative)
== END ==
PROVIDERS: PCP Family Medicine; Visit Provider Family Medicine Sleep Medicine
DX: Z20.822 Contact with and (suspected) exposure to COVID-19 (principal)
CPT/HCPCS: 87635; C9803

== ENCOUNTER → 2021-09-06 12:38 | Outpatient (CLI) | payer MEDICARE, SELFPAY ==
--- NOTE | 2021-09-06 | DI.US.S_ITS ---
PROCEDURE: US CAROTID DOPPLER BI INDICATIONS: Atherosclerotic heart disease of red devil coronary a TECHNIQUE: Color and pulse Doppler interrogation was performed of both carotid systems, with image documentation and velocity measurements. COMPARISON: None. FINDINGS: Stenosis calculations are based on SRU (Society of Radiologists in Ultrasound) criteria. Right side: Brachial blood pressure: 165/88 mm Hg. Common carotid artery peak systolic velocity: 90 cm/sec. Internal carotid artery peak systolic velocity: 81 cm/sec. Internal carotid artery end diastolic velocity: 30 cm/sec. External carotid artery peak systolic velocity: 70 cm/sec. ICA/CCA peak systolic ratio: 0.9 . Contreras scale imaging description: Mild bifurcation and proximal internal carotid artery plaque. Percent internal carotid artery stenosis: Less than 50% . Vertebral artery: Flow direction is antegrade. Left side: Brachial blood pressure: 170/85 mm Hg. Common carotid artery peak systolic velocity: 87 cm/sec. Internal carotid artery peak systolic velocity: 90 cm/sec. Internal carotid artery end diastolic velocity: 29 cm/sec. External carotid artery peak systolic velocity: 69 cm/sec. ICA/CCA peak systolic ratio: 1.03 . Contreras scale imaging description: Mild bifurcation and internal carotid artery plaque. Percent internal carotid artery stenosis: Less than 50% . Vertebral artery: Flow direction is antegrade. IMPRESSION: Mild bilateral internal carotid artery stenotic disease with less than 50% stenosis bilaterally. Dictated by: Zak Pickard M.D. on 09/06/2021 at 16:53 Approved by: Zak Pickard M.D. on 09/06/2021 at 16:55
== END ==
PROVIDERS: PCP Family Medicine; Referring Provider Nurse Practitioner Acute Care; Visit Provider Nurse Practitioner Acute Care
DX: I25.10 Atherosclerotic heart disease of native coronary artery without angina pectoris (principal); I65.23 Occlusion and stenosis of bilateral carotid arteries
CPT/HCPCS: 93880

== ENCOUNTER → 2021-09-15 14:26 | Outpatient (CLI) | payer MEDICARE, SELFPAY ==
--- NOTE | 2021-09-16 11:52 | PM.TREADMILL ---
Cardiac Stress Test Report Referral & Results Indication: CAD Rest ECG: SINUS RHYTHM WITH 1ST DEGREE AV BLOCK, INTRAVENTRICULAR CONDUCTION DELAY WITH NONSPECIFIC ST CHANGES Procedure Note: NM TREADMILL Impression: STANDARD KEYON PROTOCOL. 10:17, MAX EFFORT ETT; KALPESH -72% EXCELLENT EXERCISE CAPACITY, 10.8 METS, MAX HR 122 (86%) OF MAX HR ACHIEVED); HAD APPROPRIATE HEMODYNAMIC RESPONSE; BASELIKE ECG WITH SINUS RHYTHM WITH 1ST DEGREE AV BLOCK AND INTRAVENTRICULAR CONDUCTION DELAY WITH NON SPECIFIC ST CHANGES; NO SIGNIFICANT ST CHANGES DURING OR AFTER EXER; OCCASSIONAL PVCS; NO CHEST DISCOMFORT; HAD MODERATE SOB; SWITCHED TO MODIFIED KEYON AFTER STAGE 3; MIBI SCAN PENDING; DIRECTOR STRATEGIC PLANNING TO REVIEW; LESLY HUIZAR Please note: Actual ECG tracings can be found in the PACS system.
--- NOTE | 2021-09-16 18:47 | DI.NM.S_ITS ---
DATE OF SERVICE: 09/15/2021 PROCEDURE PERFORMED: Exercise treadmill stress and rest myocardial perfusion imaging with gating to assess ejection fraction and regional wall motion. ORDERING PROVIDER: LESLY Johnson. INDICATIONS: The patient is a 76-year-old male status post CABG. EXERCISE TREADMILL TESTING: The patient was able to exercise for a total of 9 minutes on a standard Perry protocol and then exercised for an additional 1 minute, 17 seconds at 3.3 MPH and 16% grade, suggesting excellent exercise capacity with an KALPESH of > -40%. He had a normal heart rate and blood pressure response, achieving a maximum heart rate of 122 BPM (86% of his predicted maximum). He had no chest discomfort or other anginal symptoms. His resting ECG shows sinus rhythm with a borderline interventricular conduction delay. With stress, there are no significant ST-segment shifts or arrhythmias except for isolated PVCs. At 9 minutes, 15 seconds of exercise at a heart rate of 117 BPM, 26.6 millicuries of technetium-99m Myoview was injected and he was imaged 10 minutes later using a gated SPECT acquisition protocol. The day prior, while at rest, he had been injected with 24.4 millicuries of technetium-99m Myoview and was imaged 20 minutes later, again using a gated SPECT acquisition protocol. FINDINGS: 1. Raw data: There is fairly good myocardial tracer uptake. The lung/heart ratio is normal at 0.29 with a normal TID ratio of 1.01. It is notable that the patient was imaged with his arms by his side for the prone images due to shoulder pain. 2. Quantitated gated SPECT: Post-stress ejection fraction is estimated at 68% without any focal wall motion abnormality and specifically the apex appears to have normal contractility. The resting ejection fraction is 69% with a similar contraction pattern. The rest end-diastolic volume is mildly increased at 144 mL. 3. Myocardial perfusion imaging: Post-stress supine images show a fairly normal myocardial perfusion pattern with a very small, subtle defect at the lateral apex, which may represent apical thinning. The prone images are of somewhat reduced quality, but suggest incomplete improvement in this area. The defect improves slightly on the resting images. IMPRESSION: 1. Probable normal myocardial perfusion study. 2. Small, subtle, predominantly fixed distal lateral apical defect that most likely represents apical thinning, although is slightly reversible and a small volume of ischemia cannot be completely excluded. Yet, there is no evidence for significant myocardial ischemia or previous myocardial infarction. 3. Normal left ventricular systolic function without regional wall motion abnormality. Left ventricular volumes are mildly increased. 4. Excellent exercise capacity without angina or ECG evidence of ischemia and only occasional isolated PVCs without any complex ventricular ectopy. 5. Compared to his previous myocardial perfusion study of 05/20/2011, a similar perfusion pattern was seen, again with a subtle apical defect that was slightly reversible, although it is slightly more prominent on today's images compared to the previous. The previous ejection fraction was estimated at 71% with an end-diastolic volume of 109 mL, suggesting interval increase in left ventricular size. Otherwise, there has been no significant change from the previous exam. Fantasma Romo - BHAVESH/roslyn/heri doc#: [id number]/job#: [id number] dd: 09/16/2021 17:43:00 dt: 09/16/2021 18:32:00 DICTATING MD/COPIES TO: Brock Groves MD; LESLY Johnson; Robin Clancy MD COPIES MNE: MIREYA; ;
== END ==
PROVIDERS: PCP Family Medicine; Referring Provider Nurse Practitioner Acute Care; Visit Provider Nurse Practitioner Acute Care
DX: I25.10 Atherosclerotic heart disease of native coronary artery without angina pectoris (principal); I44.0 Atrioventricular block, first degree; R06.02 Shortness of breath
CPT/HCPCS: 78452; 93017; A9502

== ENCOUNTER → 2021-12-14 13:44 | Outpatient (CLI) | payer MEDICARE, SELFPAY ==
--- NOTE | 2021-12-14 | DI.ECHO.S_ITS ---
[place] [facility]---------+ [facility] +---------+ : : [address] : : : : [id number] : : : : Phone: [phone]---------+ Echocardiogram Report + + :Name: ADELAIDA MARTINEZ Study Date: 12/14/2021 Height: 69 in : :[facility] ReadingLocation: Weight: 155 lb : : Gender: Male BSA: 1.9 m2 : :: 1945 Age: 76 yrs BP: 165/87 mmHg: :Reason For Study: ATHEROSCLEROTIC HEART DISEASE : :Ordering Physician: FREDERIC, : :HARLAN Performed By: Alesha Magallanes : :Referring: HARLAN DE LA GARZA : + + Interpretation Summary The left ventricle is normal in size. The ejection fraction is estimated to be 60-65%. There has been no significant change in LVEF since the previous exam. The right ventricle is normal size. The right ventricular systolic function is normal. There is prolapse of the posterior mitral valve leaflet(s). There is borderline mitral valve prolapse. There is moderate mitral regurgitation. Compared to the prior echo study, there has been no change in the severity of mitral regurgitation. There is mild to moderate tricuspid regurgitation. Compared to the prior echo exam, there has been no change in TR severity. The right ventricular systolic pressure is estimated to be at least 32 mmHg based on an estimated right atrial pressure of 3 mm Hg. Compared to the prior echo exam, there has been a decrease in the severity of pulmonary hypertension. Procedure: A two-dimensional transthoracic echocardiogram with color flow and Doppler was performed. The study quality was technically adequate. Comparison is made with the echocardiogram of 02/09/2020. The patient was in sinus rhythm with heart rates between 55-64 bpm during the exam. Left Ventricle: The left ventricle is normal in size. Proximal septal thickening is noted. There is no echo evidence for significant left ventricular outflow tract obstruction. There is no thrombus. The ejection fraction is estimated to be 60-65%. There has been no significant change since the previous exam. There are no focal wall motion abnormalities. MV E/A: 1.1 Med Peak E' Jame: 6.8 cm/sec E/E' med: 10.7. Right Ventricle: The right ventricle is normal size. The right ventricular systolic function is normal. Atria: The left atrium is moderately dilated. The left atrium has mildly decreased in size since the prior echo exam. The right atrium has mildly decreased in size since the prior echo exam. The right atrium is mildly dilated. There is no Doppler evidence for an interatrial shunt. Mitral Valve: The mitral valve leaflets appear mildly thickened, but open well. The mitral valve leaflets are mildly calcified. There is prolapse of the posterior mitral valve leaflet(s). There is borderline mitral valve prolapse. There is moderate mitral regurgitation. The mitral regurgitant jet is eccentrically directed. Compared to the prior echo study, there has been no change in the severity of mitral regurgitation. Aortic Valve: The aortic valve is trileaflet. The aortic valve opens well. The aortic valve is mildly calcified. There is no aortic valve stenosis. No aortic regurgitation is present. Tricuspid Valve: The tricuspid valve is normal. There is mild to moderate tricuspid regurgitation. The right ventricular systolic pressure is estimated to be at least 32 mmHg based on an estimated right atrial pressure of 3 mm Hg. Compared to the prior echo exam, there has been no change in TR severity. Compared to the prior echo exam, there has been a decrease in the severity of pulmonary hypertension. Pulmonic Valve: The pulmonic valve leaflets are thin and pliable; valve motion is normal. There is no pulmonic valvular regurgitation. Great Vessels: The aortic root is normal size. The dimensions of the ascending aorta are normal. The IVC is of normal diameter and collapses greater than 50% with a sniff. This suggests a low right atrial pressure of 3 mm Hg. Pericardium/ Pleura There is no pericardial effusion. There is no pleural effusion. MMode/2D Measurements & Calculations LVIDd: 4.8 cm LVOT diam: 2.0 cm LVIDs: 3.1 cm Ao root diam: 3.2 cm FS: 34.9 % asc Aorta Diam: 3.6 cm IVSd: 1.2 cm Ao Arch Diam (Prox Trans): 3.5 cm LVPWd: 0.99 cm LV parson. diameter/BSA (cm/m^2): 2.6 LV sys. diameter/BSA (cm/m^2): 1.7 LA A2 area: 24.8 cm2 RA long axis: 5.6 cm LA A4 area: 22.4 cm2 RA area: 19.0 cm2 LA length (vol): 6.0 cm RA vol: 54.9 ml LA vol: 77.9 ml RA : 29.6 ml/m2 LA vol index: 42.0 ml/m2 IVC diam: 0.69 cm RVD1 (basal): 4.1 cm TAPSE: 1.8 cm Doppler Measurements & Calculations Ao V2 max: 144.6 cm/sec LVOT Max Jame: 90.3 cm/sec Ao V2 mean: 92.0 cm/sec LV V1 max P.3 mmHg Ao max P.4 mmHg LV V1 VTI: 19.5 cm Ao mean P.9 mmHg CANDACE(I,D): 2.1 cm2 Ao V2 VTI: 30.1 cm CANDACE(V,D): 2.0 cm2 sev ratio: 0.65 CANDACE indexed to BSA (cm^2/m^2): 1.1 MV E max jame: 72.9 cm/sec TR max jame: 267.4 cm/sec MV A max jame: 65.3 cm/sec TR max P.6 mmHg MV E/A: 1.1 PA V2 max: 129.3 cm/sec Med Peak E' Jame: 6.8 cm/sec PA V2 mean: 84.8 cm/sec E/E' med: 10.7 PA mean P.3 mmHg Lat Peak E' Jame: 7.4 cm/sec PA pr(Accel): 44.7 mmHg E/E' lat: 9.8 E/e' average: 10.3 MV dec time: 0.29 sec MR ERO: 0.23 cm2 MR PISA: 3.0 cm2 SV(LVOT): 63.6 ml MR flow rate: 149.3 cm3/sec MR PISA radius: 0.70 cm Reading Physician:03:43 PM
== END ==
PROVIDERS: PCP Family Medicine; Referring Provider Nurse Practitioner Acute Care; Visit Provider Nurse Practitioner Acute Care
DX: I25.10 Atherosclerotic heart disease of native coronary artery without angina pectoris (principal); I34.1 Nonrheumatic mitral (valve) prolapse; I34.0 Nonrheumatic mitral (valve) insufficiency; I07.1 Rheumatic tricuspid insufficiency; I27.20 Pulmonary hypertension, unspecified
CPT/HCPCS: 93306

== ENCOUNTER → 2022-03-07 09:14 | Outpatient (CLI) | payer MEDICARE, SELFPAY ==
[2022-03-07 11:15] LABS: COVID19 -Nasal RAPID Negative (Negative)
== END ==
PROVIDERS: PCP Family Medicine; Visit Provider Surgery
DX: Z01.812 Encounter for preprocedural laboratory examination (principal); Z20.822 Contact with and (suspected) exposure to COVID-19
CPT/HCPCS: 87635; C9803

== ENCOUNTER 2022-03-08 11:06 | Day surgery (SDC) | payer MEDICARE, SELFPAY ==
[2022-02-22 09:51] VITALS: BMI 22.8
[2022-03-08] VITALS (22 sets, daily range): BP systolic 93–151; BP diastolic 42–82; PULSE 56–94; RESP 10–18; TEMP 36.2–37.2; O2SAT 93–98; BMI 21.9
[2022-03-08] MEDS: LACTATED RINGERS 1,000 ML 100 ML IV ×2 (11:47→21:00)
--- NOTE | 2022-03-08 13:27 | PM.HP.1 ---
History of Present Illness History of Present Illness Date Patient Seen: 03/08/22 Chief complaint: LAP KELLEN INGUINAL HERNIA REPAIR X2 Narrative: 77-year-old male here for elective laparoscopic inguinal hernia repair. Please refer the note from December 2021 for further detail. No interval changes in health. Patient History Medical History (Updated 02/22/22 @ 09:58 by Hannah Salguero RN) Arthritis CAD (coronary artery disease) Enlarged prostate Former smoker GERD (gastroesophageal reflux disease) Heart murmur HTN (hypertension) Hyperlipidemia Melanoma Pre-diabetes Surgical History (Updated 02/22/22 @ 10:55 by Hannah Salguero RN) Hx of bilateral cataract extraction S/P CABG x 5 (2014) Family & Social History Social History: household members spouse Tobacco & Substance use: Tobacco type cigarettes Smoking Status Former smoker alcohol intake current alcohol intake frequency holiday/special occasion Substance Use Type does not use Meds Home Medications and Allergies Home Medications Medication Instructions Recorded Confirmed Type aspirin 81 mg tablet,delayed 81 mg PO Q DAY ##0 03/11/16 03/08/22 History release metoprolol tartrate 25 mg tablet 25 mg PO BID ##0 05/19/16 03/08/22 History tamsulosin 0.4 mg capsule (Flomax) 0.4 mg PO QDAY ##0 05/19/16 03/08/22 History atorvastatin 40 mg tablet 40 mg PO BEDTIME 05/16/19 03/08/22 History lisinopril 10 mg tablet 10 mg PO DAILY 02/22/22 03/08/22 History omeprazole 20 mg tablet,delayed 20 mg PO DAILY 02/22/22 03/08/22 History release acetaminophen 325 mg capsule 650 mg PO QID PRN pain #60 caps 03/08/22 Rx (Tylenol) docusate sodium 100 mg capsule 100 mg PO BID #30 caps 03/08/22 Rx (Colace) ibuprofen 200 mg tablet 400 mg PO Q6H #60 tabs 03/08/22 Rx oxycodone 5 mg tablet 5 mg PO Q6H PRN pain #20 tabs 03/08/22 Rx Allergies Allergy/AdvReac Type Severity Reaction Status Date / Time metformin AdvReac Severe Shortness Verified 03/08/22 11:25 of breath Exam Vital Signs (past 8 hours): - 03/08/22 11:44 Temperature 97.8 F Pulse Rate 60 Respiratory Rate 12 Blood Pressure 128/82 Pulse Oximetry 95 Oxygen Delivery Method Room Air Oxygen Delivery Method Room Air Narrative Exam Narrative: General adult male alert oriented no acute distress Abdomen soft nontender nondistended. Bilateral inguinal hernia present Assessment & Plan Assessment & Plan narrative: 77-year-old male with bilateral inguinal hernia here for elective laparoscopic bilateral hernia repair. Will review the procedure was again discussed with the patient at the bedside. Operative risks including bleeding, infection, chronic pain, damage to surrounding structures, recurrence were discussed. His questions have been answered and he is in agreement with this plan. Time Spent With Patient Critical Care time: I spent a total of [] minutes of critical care time on this patient's care today; this time is exclusive of procedural time.
[2022-03-08] MEDS: CEFAZOLIN 2 GM/100 ML PREMIX 100 ML IV (13:47)
--- NOTE | 2022-03-08 14:19 | SUR.OPER ---
Supine on padded OR bed, head on pillow, arms secured tucked bilaterally with gel pads, legs uncrossed, safety belt at thigh, tape over blanket over lower legs.
[2022-03-08] MEDS: BUPIVACAINE 0.25% (PF) VIAL 30 ML INJ (14:28)
[2022-03-08] MEDS: LACTATED RINGERS 1,000 ML 42 ML IV (14:33)
--- NOTE | 2022-03-08 16:27 | P.OP_ITS ---
Operative Date/Time/Diagnoses Date of procedure: 03/08/22 Time of procedure: 16:28 Pre-op diagnosis: Bilateral inguinal Post-op diagnosis: same Procedure & Clinicians Procedure: Laparoscopic bilateral inguinal hernia repair with mesh. JERARDO Same procedure as scheduled: Yes Indications: Bilateral inguinal hernia symptomatic reducible. Surgeon: Bernard Mota Click Yes if Unassisted: Yes Anesthesia Type: General Operative Notes Findings: Bilateral inguinal hernia. Left-indirect fat containing hernia and small direct defect. Right direct defect only. Estimated Blood Loss (mL): 20 Procedure in detail: The patient was brought to the operating room and placed supine on the table. Bilateral sequential compression devices were applied. General anesthesia was induced and they were intubated with an endotracheal tube. A murillo cath was placed in sterile fashion. They received Ancef prior to skin incision. They were prepped and draped in sterile fashion. A time out was performed to ensure the correct patient, procedure and necessary equipment within the operating room. The skin was infiltrated with 0.25% bupivicaine. A 1 cm infram umbilical midline incision was made. The umbilical stalk was elevated the fascia sharply incised and the abdomen entered traumatically. A 10mm balloon port was placed and pneumoperitoneum was established at 15mm Hg. Inspection of the abdomen demonstrated no evidence of injury upon entry. Two 5 mm ports were then placed under direct visualization in the right and left lower quadrant lateral to the rectus muscle. Bilateral inguinal hernia defects were observed. Left side direct and indirect. On the right side there was a direct floor defect only. We began with the left side. The peritoneum 4 cm superior to the deep inguinal ring between the medial umbilical ligament and the anterior superior iliac spine was incised. The medial preperitoneal dissection was carried out into the space of Retzius bluntly, the bladder was swept inferiorly, the pubis and Eulalio's ligament were identified. Next attention was turned towards the lateral aspect of the peritoneal flap. T he preperitoneal fat with the testicular vessels was carefully dissected off the inferior peritoneal flap. Addressing the indirect hernia defect, the testicular vessels and the vas deferns were carefully dissected off the hernia sac. The attachements to the direct hernia sac were divided and the direct defect was reduced. A large Bard 3D Max mesh was then placed into the abdomen and positioned such that the myopectineal orifice was completely covered with good overlap on all sides. The peritoneal flap was then closed with a running V lock suture such that no bowel could herniate into the preperitoneal space. The area was examined for hemostasis. On the right side, the peritoneum 4 cm superior to the deep inguinal ring between the medial umbilical ligament and the anterior superior iliac spine was incised. The medial preperitoneal dissection was carried out into the space of Retzius bluntly, the bladder was swept inferiorly, the pubis and Eulalio's ligament were identified. Next attention was turned towards the lateral aspect of the peritoneal flap. The preperitoneal fat with the testicular vessels was carefully dissected off the inferior peritoneal flap. The attachements to the direct hernia sac were divided and the direct defect was reduced. A large Bard 3D Max mesh was then placed into the abdomen and positioned such that the myopectineal orifice was completely covered with good overlap on all sides. The peritoneal flap was then closed with a running V lock suture such that no bowel could herniate into the preperitoneal space. The area was examined for hemostasis. The 5mm trocars were removed under direct visualization and pneumoperitoneum was deflated through the umbilical trocar, The fascia at the umbilicus was closed with 0-Vicryl in figure of 8 fashion, skin closed with 4-0 Monocyl followed by Dermabond. The sponge and instrument count at the end of the case was correct. Both testicles were entirely within the scrotum at the end of the case. The p atient emerged from anesthsia was extubated and transferred to recovery in stable condition. Complications: none Post-operative Condition: stable Disposition: same day surgery
[2022-03-08] MEDS: HYDROMORPHONE 2 MG INJ IV ×2 (17:01→17:16)
[2022-03-08] MEDS: OXYCODONE IR 5 MG TABLET PO ×2 (17:05→17:47)
--- NOTE | 2022-03-08 17:32 | SUR.PHASEI ---
Recieved report from Griselda LUND. We are going to try to have pt admitted to the floor. Since he is having some confusion and is having pain. Dr. Mota will be contacted when he is out of surgery. Pt's at bedside.
--- NOTE | 2022-03-08 17:52 | SUR.PHASEI ---
Dr. Mota came in and saw pt and decided to admit pt. Pt to be admitted. pt is feeling better now. Remains slightly confused about hsi surgery and where he is and tearful at times. Pt is stable but not at his baseline of admission today. Pt's remains at bedside and pt is sleeping off and on.
--- NOTE | 2022-03-08 18:44 | PC.NURSE ---
Dayshift Pt arrived from OR at 1840, denies any pain or nausea, orientated to call light and bed controls, Pt verbalized will not get OOB without notifying staff. Pt is eating mash potatoes and meatloaf, given receptacle incase of nausea. VS WNL RA 97%.
[2022-03-08] MEDS: ACETAMINOPHEN 325 MG TABLET 650 MG PO (23:18)
[2022-03-08] MEDS: KETOROLAC 30 MG/ML VIAL 15 MG IV (23:19)
[2022-03-09 01:00] VITALS: O2SAT 97
[2022-03-09 04:21] VITALS: BP 120/50; PULSE 55; RESP 18; TEMP 36.3; O2SAT 96
[2022-03-09 05:00] VITALS: O2SAT 96
[2022-03-09] MEDS: KETOROLAC 30 MG/ML VIAL 15 MG IV (05:17)
[2022-03-09] MEDS: ACETAMINOPHEN 325 MG TABLET 650 MG PO (05:18)
[2022-03-09] MEDS: LACTATED RINGERS 1,000 ML 100 ML IV (05:22)
[2022-03-09 07:15] VITALS: O2SAT 97
[2022-03-09 08:00] VITALS: BP 142/61; PULSE 53; RESP 17; TEMP 36.2; O2SAT 97
--- NOTE | 2022-03-09 09:20 | CM.DANOTE ---
DCP: Case received, EMR reviewed and met with patient. Introduced self and role. Was able to obtain information regarding patient's baseline activity status prior to his surgery. DCP assessment completed with information currently available. Patient is a 77 year old male who admitted yesterday morning to the care of the surgical team. PCP: Dr. Garcia. Payer: confirmed: Medicare/[employer]. Patient came to the hospital via private vehicle for a surgical procedure. Patient had inguinal hernia repair. He had laparoscopic repair. Met with patient in his room. He is pleasant, alert and oriented. He resides in [place] with his spouse, Bruna. He is independent at his baseline. P: Patient is to be discharged home today. Barbara Escobar RN/Sanitation Lead Discharge Planning/Care Management CM Discharge Assessment Start: 03/09/22 09:19 Freq: Status: Active Protocol: Document 03/09/22 09:19 (Rec: 03/09/22 09:20 [id number]) Discharge Planning Assessment Assigned Undergraduate Advisor Barbara Escobar RN/Sanitation Lead Advance Directives? Yes Advance Directives on File Yes History Provided By Patient Prior Living Arrangements House Household Members spouse Type of transporation used prior to Drives own vehicle admit Independent with ADL's Yes Is patient alert and oriented? Yes Caregiver for Another No Barriers to Discharge No Discharge Plan Home Transportation Arrangement Spouse Referrals Initiated None needed Whiteboard Updated in Patient Room with Yes name and ext. # of Undergraduate Advisor Review Status In Process Next Review Type Continued Stay Review Pre-Anesthesia Assessment Start: 02/22/22 09:51 Freq: Status: Complete Protocol: Document 02/22/22 09:51 [facility] (Rec: 02/22/22 09:59 [facility] [id number]) Pre-Anesthesia Assessment Patient Information Reviewed Via Chart Review Comment COVID screen @ 03/07/22 Primary Care Provider Brock Garcia Seen Specialist in Last 12 Months Yes Specialist Seen General surgeon Primary Language Polish Preferred Language Polish Environmental Services Director Required No Height 5 ft 9 in Weight 155 lb Body Mass Index (BMI) 22.8 Hearing Ability Normal Visual Impairment No Limitations Visual Assist None Dentition Type Teeth, Natural Present Hx Anesthesia Reactions No Hx Family Anesthesia Reaction No Hx Malignant Hyperthermia No Hx Blood Transfusions No Hx Blood Transfusion Reaction No Anesthesia Review Requested No Speech Lang Path No alcohol intake current alcohol intake frequency holidays/special occasions only Smoking Status Former smoker Tobacco type cigarettes how long ago did patient quit smoking Quit 1970 Substance Use Type does not use Pain Present Pain Reported Patient is completely paralyzed or No completely immobile Mental Status Oriented to own ability Is patient on oxygen? No Hx Sleep Apnea No CPAP/BIPAP use not prescribed Currently Taking a Beta Oksana Yes: Metoprolol Anti-Coagulant Therapy Yes: 81mg ASA Cardiac Testing Echo 12/14/21, Nuc perfus , Carotid dop 09/06/21 @ [facility]-no sig change Hx Pacemaker/ICD No Pacemaker Rep Required? No Urinary Catheter Present No Hx Urinary Self Catheterization No Diabetes No Presence of External or Internal Medical Yes: wires in chest, cataracts Devices x2. Received a COVID vaccine? Yes Marital Status Lives With spouse Patient Discharge Plan Description Return Home Advance Directives? Yes Advance Directives on File Yes
--- NOTE | 2022-03-09 10:42 | PC.NURSE ---
Day Shift Pt left unit at 1040 via wheel chair, all paperwork given and signed, all questions answered. Pt had all personal belongings. script sent to pharmacy, did teaching on wound care, shower, Dressings CDI, Pt spouse driving him home via personal vehicle.
== END 2022-03-09 10:45 | disposition home or self-care (01) ==
LOC: OR 13:26 → AC 17:22
PROVIDERS: PCP Family Medicine; Referring Provider Surgery; Visit Provider Surgery
PROC: 0YQ64ZZ Repair Left Inguinal Region, Percutaneous Endoscopic Approach (ICD-10-PCS; CPT 49650; principal; 2022-03-08 12:45)
DX: K40.20 Bilateral inguinal hernia, without obstruction or gangrene, not specified as recurrent (principal); I25.10 Atherosclerotic heart disease of native coronary artery without angina pectoris; I10 Essential (primary) hypertension; E78.5 Hyperlipidemia, unspecified; R73.03 Prediabetes; Z95.1 Presence of aortocoronary bypass graft
CPT/HCPCS: 49650; 82962; J0330; J0690; J1100; J1170; J1885; J2250; J2405; J2704; J3010; J3490

== ENCOUNTER → 2023-04-11 12:31 | Outpatient (CLI) | payer MEDICARE, OTHER, SELFPAY ==
[2022-03-08 17:23] VITALS: BMI 21.9
--- NOTE | 2023-04-11 | DI.ECHO.S_ITS ---
[facility] : : [address] : : : : [id number] : : : : Phone: [phone] Echocardiogram Report + + :Name: ADELAIDA MARTINEZ Study Date: 04/11/2023 Height: 69.5 in: :[facility] ReadingLocation: Weight: 150 lb : : Gender: Male BSA: 1.8 m2 : :: 1945 Age: 78 yrs BP: 156/89 mmHg: :Reason For Study: MITRAL INSUFFICIENCY : :Ordering Physician: SLOAN, : :HANNAH Performed By: Alesha Magallanes : :Referring: HANNAH LISA : + + Interpretation Summary The left ventricle is normal in size. The left ventricular ejection fraction is normal. The ejection fraction is estimated to be 60-65%. No significant change in LVEF from the previous study. The right ventricle is mildly dilated. The right ventricular systolic function is normal. There is a mild prolapse of posterior mitral leaflet. No obvious flail leaflet. Associated moderate mitral regurgitation. Unchanged from the previous study. There is mild to moderate tricuspid regurgitation. Compared to the prior echo exam, there has been no change in TR severity. The right ventricular systolic pressure is estimated to be at least 34 mmHg based on an estimated right atrial pressure of 8 mm Hg. There is mild luminal irregularity and echogenicity in the abdominal aorta, suggestive of aortic atherosclerotic disease. Mild atherosclerotic plaque(s) in the aortic arch. Procedure: A two-dimensional transthoracic echocardiogram with color flow and Doppler was performed. The study quality was technically adequate. Comparison is made with the echocardiogram of 12/14/2021. The patient was in normal sinus rhythm during the exam. Left Ventricle: The left ventricle is normal in size. There is mild concentric left ventricular hypertrophy. Proximal septal thickening is noted. There is no echo evidence for significant left ventricular outflow tract obstruction. There is no thrombus. The ejection fraction is estimated to be 60-65%. The left ventricular ejection fraction is normal. There has been no significant change since the previous exam. There are no focal wall motion abnormalities. MV E/A: 1.1 Med Peak E' Jame: 7.2 cm/sec E/E' med: 9.1. No significant diastolic dysfunction. Right Ventricle: The right ventricle is mildly dilated. The right ventricular systolic function is normal. Atria: The left atrium is moderately dilated. There has been no significant change since the previous study. The right atrium is mildly dilated. There is no Doppler evidence for an interatrial shunt. Mitral Valve: The mitral valve leaflets appear mildly thickened, but open well. The mitral valve leaflets are mildly calcified. There is prolapse of the posterior mitral valve leaflet(s). There is a mild prolapse of posterior mitral leaflet. No obvious flail leaflet. Associated moderate mitral regurgitation. Unchanged from the previous study. There is moderate mitral regurgitation. The mitral regurgitant jet is eccentrically directed. Aortic Valve: The aortic valve is trileaflet. The aortic valve opens well. The aortic valve is mildly calcified. There is no aortic valve stenosis. There is trace aortic regurgitation. Tricuspid Valve: The tricuspid valve leaflets are thickened and/or calcified, but open well. There is mild to moderate tricuspid regurgitation. The right ventricular systolic pressure is estimated to be at least 34 mmHg based on an estimated right atrial pressure of 8 mm Hg. Compared to the prior echo exam, there has been no change in TR severity. Pulmonic Valve: The pulmonic valve is not well visualized. There is mild pulmonic regurgitation. Great Vessels: The aortic root is normal size. The dimensions of the ascending aorta are normal. There is mild luminal irregularity and echogenicity in the abdominal aorta, suggestive of aortic atherosclerotic disease. Mild atherosclerotic plaque(s) in the aortic arch. The IVC is dilated (diameter is greater than 2.1 cm) yet it collapses greater than 50% with a sniff. This suggests a right atrial pressure of 8 mm Hg. Pericardium/ Pleura There is no pericardial effusion. There is no pleural effusion. MMode/2D Measurements & Calculations LVIDd: 5.1 cm LVOT diam: 2.0 cm LVIDs: 3.7 cm Ao root diam: 3.2 cm FS: 26.6 % asc Aorta Diam: 3.6 cm IVSd: 1.1 cm LVPWd: 1.0 cm LV parson. diameter/BSA (cm/m^2): 2.8 LV sys. diameter/BSA (cm/m^2): 2.0 LA A2 area: 25.0 cm2 RA long axis: 5.7 cm LA A4 area: 23.0 cm2 RA area: 20.2 cm2 LA length (vol): 5.8 cm RA vol: 61.1 ml LA vol: 85.0 ml RA : 33.2 ml/m2 LA vol index: 46.2 ml/m2 IVC diam: 2.4 cm RVD1 (basal): 4.5 cm TAPSE: 1.7 cm Doppler Measurements & Calculations Ao V2 max: 128.8 cm/sec LVOT Max Jame: 87.3 cm/sec Ao V2 mean: 86.2 cm/sec LV V1 max P.0 mmHg Ao max P.6 mmHg LV V1 VTI: 18.6 cm Ao mean P.4 mmHg CANDACE(I,D): 2.1 cm2 Ao V2 VTI: 27.9 cm CANDACE(V,D): 2.2 cm2 sev ratio: 0.67 CANDACE indexed to BSA (cm^2/m^2): 1.2 MV E max jame: 66.1 cm/sec TR max jame: 256.9 cm/sec MV A max jame: 58.0 cm/sec TR max P.4 mmHg MV E/A: 1.1 PA V2 max: 118.3 cm/sec Med Peak E' Jame: 7.2 cm/sec PA V2 mean: 80.8 cm/sec E/E' med: 9.1 PA mean P.9 mmHg Lat Peak E' Jame: 7.6 cm/sec PA pr(Accel): 31.0 mmHg E/E' lat: 8.7 E/e' average: 8.9 MV dec time: 0.16 sec MR ERO: 0.21 cm2 MR PISA: 2.9 cm2 SV(LVOT): 59.4 ml MR flow rate: 122.6 cm3/sec MR PISA radius: 0.67 cm Reading Physician:05:50 PM
== END ==
PROVIDERS: PCP Family Medicine; Referring Provider Internal Medicine Cardiovascular Disease; Visit Provider Internal Medicine Cardiovascular Disease
DX: I34.0 Nonrheumatic mitral (valve) insufficiency (principal); I51.7 Cardiomegaly; I34.1 Nonrheumatic mitral (valve) prolapse; I07.1 Rheumatic tricuspid insufficiency; I70.0 Atherosclerosis of aorta
CPT/HCPCS: 93306

== ENCOUNTER → 2023-07-03 12:05 | Outpatient (ROUT) | payer MEDICARE, OTHER, SELFPAY ==
[2022-03-08 17:23] VITALS: BMI 21.9
[2023-07-03 13:12] LABS: Influenza A - CEPHEID Flu A NEGATIVE (NEGATIVE); Influenza B - CEPHEID Flu B NEGATIVE (NEGATIVE); Respiratory Syncytial Virus Negative (Negative)
[2023-07-03 13:17] LABS: COVID-19 CEPHEID 4-PLEX PCR Negative (Negative)
== END ==
PROVIDERS: PCP Family Medicine; Visit Provider Registered Nurse
DX: R05.1 Acute cough (principal)
CPT/HCPCS: 0241U

== ENCOUNTER → 2023-07-24 15:07 | Outpatient (CLI) | payer MEDICARE, OTHER, SELFPAY ==
[2022-03-08 17:23] VITALS: BMI 21.9
--- NOTE | 2023-07-24 15:09 | DI.RAD.S_ITS ---
PROCEDURE: XR SHOULDER LT MIN 2V INDICATIONS: ACUTE PAIN OF LEFT SHOULDER TECHNIQUE: 3 views of the shoulder were acquired. COMPARISON: [facility], CR, XR SHOULDER RT MIN 2V, 09/02/2018, 11:02. [facility], CR, XR SHOULDER RT MIN 2V, 01/23/2018, 11:35. FINDINGS: Bones: No fractures or dislocations. No suspicious bony lesions. Visualized ribs appear intact. Glenohumeral and acromioclavicular joint space narrowing with associated osteophytosis. Soft tissues: No suspicious soft tissue calcifications. Left lung pleural calcifications. Sternotomy wires. IMPRESSION: No acute bony abnormality. Moderate shoulder osteoarthritis. Dictated by: Omid Lazcano M.D. on 07/24/2023 at 16:00 Approved by: Omid Lazcano M.D. on 07/24/2023 at 16:01
== END ==
LOC: RAD 15:08
PROVIDERS: PCP Family Medicine; Referring Provider Family Medicine; Visit Provider Family Medicine
DX: M19.012 Primary osteoarthritis, left shoulder (principal); M25.512 Pain in left shoulder
CPT/HCPCS: 73030

== ENCOUNTER → 2024-06-08 07:57 | Outpatient (CLI) | payer MEDICARE, OTHER, SELFPAY ==
[2022-03-08 17:23] VITALS: BMI 21.9
--- NOTE | 2024-06-08 07:58 | DI.ECHO.S_ITS ---
[facility]---------+ [facility] : : [address] : : [id number] : : Phone: [phone] Echocardiogram Report + + :Name: ADELAIDA MARTINEZ Study Date: 06/08/2024 Height: 69 in : :Hospital ReadingLocation: Weight: 160 lb : : Gender: Male BSA: 1.9 m2 : :: 1945 Age: 79 yrs BP: 166/97 mmHg: :Reason For Study: MITRAL REGURGITATION : :Ordering Physician: SLOAN, : :HANNAH Performed By: Alesha Magallanes : :Referring: HANNAH LISA : + + Interpretation Summary The left ventricle is normal in size. The left ventricular ejection fraction is normal. The ejection fraction is estimated to be 60-65%. No significant change in LVEF from the previous study. The right ventricle is normal size. Recently RV function appears to be preserved. There is prolapse of the posterior mitral valve leaflet(s). There is mild mitral valve prolapse. There is moderate mitral regurgitation. Compared to the prior echo study, there has been no change in the severity of mitral regurgitation. There is mild aortic regurgitation. There is mild tricuspid regurgitation. Compared to the prior echo exam, there has been a decrease in TR severity. Right ventricular systolic pressure is estimated to be 20 mmHg plus the clinically estimated CVP which cannot be estimated on this exam. Procedure: A two-dimensional transthoracic echocardiogram with color flow and Doppler was performed. The study quality was technically adequate. Comparison is made with the echocardiogram of 04/11/2023. The patient was in sinus rhythm with heart rates between 60-63 bpm during the exam. Left Ventricle: The left ventricle is normal in size. Left ventricular wall thickness is mildly increased. Proximal septal thickening is noted. There is no thrombus. The ejection fraction is estimated to be 60-65%. The left ventricular ejection fraction is normal. There are no focal wall motion abnormalities. MV E/A: 1.0 Med Peak E' Jame: 7.3 cm/sec E/E' med: 10.0. Right Ventricle: The right ventricle is normal size. Recently RV function appears to be preserved. Atria: The left atrium is moderately dilated. There has been no significant change since the previous study. The right atrium is moderately dilated. There is no Doppler evidence for an interatrial shunt. Mitral Valve: The mitral valve chordae are thickened and/or calcified. The mitral valve leaflets are mildly calcified. There is prolapse of the posterior mitral valve leaflet(s). There is mild mitral valve prolapse. There is moderate mitral regurgitation. The mitral regurgitant jet is eccentrically directed. Compared to the prior echo study, there has been no change in the severity of mitral regurgitation. Aortic Valve: The aortic valve is trileaflet. The aortic valve opens well. The aortic valve is mildly calcified. There is no aortic valve stenosis. There is mild aortic regurgitation. Tricuspid Valve: The tricuspid valve is normal. There is mild tricuspid regurgitation. Right ventricular systolic pressure is estimated to be 20 mmHg plus the clinically estimated CVP which cannot be estimated on this exam. Compared to the prior echo exam, there has been a decrease in TR severity. Pulmonic Valve: The pulmonic valve is not well visualized. There is trace pulmonic regurgitation. Great Vessels: The aortic root is normal size. The ascending aorta is at the upper limits of normal in size. Aortic arch not well-visualized. The inferior vena cava was not well visualized. Pericardium/ Pleura There is no pericardial effusion. There is no pleural effusion. MMode/2D Measurements & Calculations LVIDd: 5.0 cm LVOT diam: 2.1 cm LVIDs: 3.4 cm Ao root diam: 3.1 cm FS: 31.2 % asc Aorta Diam: 3.7 cm EPSS: 0.32 cm IVSd: 1.1 cm LVPWd: 1.1 cm LV parson. diameter/BSA (cm/m^2): 2.6 LV sys. diameter/BSA (cm/m^2): 1.8 LA A2 area: 24.2 cm2 RA long axis: 6.3 cm LA A4 area: 26.4 cm2 RA area: 25.3 cm2 LA length (vol): 6.4 cm RA vol: 85.9 ml LA vol: 84.9 ml RA : 45.7 ml/m2 LA vol index: 45.2 ml/m2 RVD1 (basal): 3.9 cm RVD2 (mid): 2.6 cm TAPSE: 1.6 cm Doppler Measurements & Calculations Ao V2 max: 117.6 cm/sec LVOT Max Jame: 70.2 cm/sec Ao V2 mean: 74.6 cm/sec LV V1 max P.0 mmHg Ao max P.5 mmHg LV V1 VTI: 16.3 cm Ao mean P.7 mmHg CANDACE(I,D): 2.1 cm2 Ao V2 VTI: 26.1 cm CANDACE(V,D): 2.1 cm2 sev ratio: 0.62 CANDACE indexed to BSA (cm^2/m^2): 1.1 MV E max jame: 73.1 cm/sec TR max jame: 222.2 cm/sec MV A max jame: 71.8 cm/sec TR max P.7 mmHg MV E/A: 1.0 PA V2 max: 117.0 cm/sec Med Peak E' Jame: 7.3 cm/sec PA V2 mean: 79.5 cm/sec E/E' med: 10.0 PA mean P.0 mmHg Lat Peak E' Jame: 8.1 cm/sec PA pr(Accel): 39.6 mmHg E/E' lat: 9.0 E/e' average: 9.5 MV dec time: 0.12 sec MR ERO: 0.26 cm2 MR PISA: 3.2 cm2 SV(LVOT): 55.9 ml MR flow rate: 141.0 cm3/sec MR PISA radius: 0.72 cm Reading Physician:02:19 PM
== END ==
PROVIDERS: Family Provider Family Medicine; PCP Family Medicine; Referring Provider Internal Medicine Cardiovascular Disease; Visit Provider Internal Medicine Cardiovascular Disease
DX: I08.3 Combined rheumatic disorders of mitral, aortic and tricuspid valves (principal)
CPT/HCPCS: 93306

== ENCOUNTER → 2024-10-22 15:56 | Outpatient (CLI) | payer MEDICARE, OTHER, SELFPAY ==
[2022-03-08 17:23] VITALS: BMI 21.9
--- NOTE | 2024-10-22 16:00 | DI.RAD.S_ITS ---
PROCEDURE: XR LUMBAR SPINE MIN 4V INDICATIONS: BACK PAIN TECHNIQUE: 5 views of the lumbar spine were acquired, including bilateral oblique views. COMPARISON: [facility], CR, XR LUMBAR SPINE WITH OBLIQUES PLUS FLEXION EXTENSION, 03/28/2022, 8:36. [facility], CT, CT KIDNEY URETER BLADDER (KUB), 01/03/2021, 2:33. FINDINGS: Bones: 5 nonrib-bearing vertebrae are present. Mild dextroscoliosis. Anterolisthesis of L4 on L5 measuring 0.7 cm. No vertebral body compression fractures. No suspicious bony lesions. Soft tissues: Overlying bowel gas pattern is normal. No suspicious soft tissue calcifications. IMPRESSION: Grade 1 anterolisthesis of L4 on L5. Mild dextroscoliosis. Dictated by: Tyrell Chu M.D. on 10/23/2024 at 12:51 Approved by: Tyrell Chu M.D. on 10/23/2024 at 12:58
== END ==
PROVIDERS: Family Provider Family Medicine; PCP Family Medicine; Referring Provider Family Medicine; Visit Provider Family Medicine
DX: M51.16 Intervertebral disc disorders with radiculopathy, lumbar region (principal); M43.16 Spondylolisthesis, lumbar region; M41.9 Scoliosis, unspecified
CPT/HCPCS: 72110

== ENCOUNTER → 2024-10-29 16:32 | Outpatient (CLI) | payer MEDICARE, OTHER, SELFPAY ==
[2022-03-08 17:23] VITALS: BMI 21.9
--- NOTE | 2024-10-29 16:34 | DI.MRI.S_ITS ---
PROCEDURE: MR LUMBAR SPINE WO CON INDICATIONS: GRADE 1 ANTEROLISTHESIS TECHNIQUE: Noncontrast sagittal T1 spin echo and T2 fast echo, sagittal STIR, and T2 fast spin echo through the lumbar spine. In cases with scoliosis, additional coronal T2 fast spin echo may be performed. COMPARISON: [facility], MR, L-SPINE WITHOUT CONTRAST, 10/03/2017, 9:03. [facility], MR, MR LUMBAR SPINE WO CON, 01/20/2021, 12:06. [facility], CR, XR LUMBAR SPINE MIN 4V, 10/22/2024, 15:59. [facility], CT, CT KIDNEY URETER BLADDER (KUB), 01/03/2021, 2:33. FINDINGS: Image quality: Diagnostic, with note made of motion artifact. Alignment and Curvature: Mild dextroconvex scoliotic curvature is seen. There is minimal retrolisthesis at L1-L2 and L2-L3. Minimal anterolisthesis is seen at L4-L5 and L5-S1. Bone Marrow: Marrow is of normal overall signal. No acute vertebral body compression fractures. Spinal Cord: Conus medullaris terminates at the L1 level. Visualized cord demonstrates normal signal and size. Paraspinous Soft Tissues: No paravertebral masses. T12-L1: The disc height is well-preserved. Loss of disc signal is seen at this level. Bridging endplate osteophytes are seen. Mild generalized disc bulge is seen. No significant neural foraminal or central canal narrowing can be seen. L1-L2: The disc height is well-preserved. Loss of disc signal is seen at this level. Mild to moderate disc bulge is seen, which is eccentric to the right. There is a focal annular fissure seen posteriorly. Mild facet joint hypertrophy is seen. There is at least moderate right-sided and moderate to severe left-sided neural foraminal narrowing. There is a degree of compression seen upon the exiting left L1 nerve root. Mild central canal narrowing is seen. These imaging the findings have progressed compared to the prior study. L2-L3: Moderate loss of disc height is seen on the left side. Loss of disc signal is seen. Moderate generalized disc bulge is seen. There is a superimposed central disc osteophyte protrusion. Mild to moderate facet hypertrophy is seen. There is moderate to severe left-sided and at least moderate right-sided neural foraminal narrowing. There is a degree of compression seen upon the exiting nerve roots. Moderate central canal narrowing is seen. These imaging findings have progressed compared to the prior study. L3-L4: The disc height is well-preserved. Loss of disc signal is seen at this level. Moderate generalized disc bulge is seen. There is a superimposed central disc protrusion. Moderate to prominent facet hypertrophy is seen. Associated hypertrophy of the ligamentum flavum can be seen. There is moderate to severe bilateral neural foraminal narrowing seen, with an associated degree of compression seen upon the exiting nerve roots. There is severe central canal narrowing, as on series 6, image 21. These degenerative changes are worse than in 2021. L4-L5: The disc height is well-preserved. Loss of disc signal is seen at this level. Moderate generalized disc bulge is seen. There is a superimposed central disc osteophyte protrusion. There is a focal annular fissure seen posteriorly. Moderate to prominent facet hypertrophy is seen. Associated hypertrophy of the ligamentum flavum can be seen. There is moderate to severe bilateral neural foraminal narrowing seen, with an associated degree of compression seen upon the exiting nerve roots. Moderate to severe central canal narrowing is seen. Compared to 2022, the degenerative changes are mildly progressed. L5-S1: The disc height is well-preserved. Loss of disc signal is seen at this level. Moderate generalized disc bulge is seen. There is a superimposed central disc protrusion. Moderate to prominent facet hypertrophy can be seen. There is at least moderate left-sided and moderate to severe right-sided neural foraminal narrowing. There is a degree of compression seen upon the exiting right L5 nerve root. Mild central canal narrowing is seen. When comparison is made with the prior images, these findings are similar. 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 The degenerative changes are progressed at several levels compared to 202 Dictated by: Ulises Watson M.D. on 10/30/2024 at 17:17 Approved by: Ulises Watson M.D. on 10/30/2024 at 17:26
== END ==
PROVIDERS: Family Provider Family Medicine; PCP Family Medicine; Referring Provider Family Medicine; Visit Provider Family Medicine
DX: M43.16 Spondylolisthesis, lumbar region (principal); M47.816 Spondylosis without myelopathy or radiculopathy, lumbar region; M47.817 Spondylosis without myelopathy or radiculopathy, lumbosacral region
CPT/HCPCS: 72148

== ENCOUNTER 2025-03-21 14:00 | Emergency (ER) | payer MEDICARE, OTHER, SELFPAY ==
[2022-03-08 17:23] VITALS: BMI 21.9
[2025-03-21] VITALS (15 sets, daily range): BP systolic 137–201; BP diastolic 73–94; PULSE 66–75; RESP 13–21; TEMP 37.1; O2SAT 89–98; BMI 22.8
--- NOTE | 2025-03-21 14:15 | DI.RAD.S_ITS ---
PROCEDURE: XR SHOULDER RT MIN 2V INDICATIONS: pain TECHNIQUE: 3 views of the shoulder were acquired. COMPARISON: [facility], CR, XR SHOULDER LT MIN 2V, 07/24/2023, 15:14. FINDINGS: Bones: No fractures or dislocations. No suspicious bony lesions. Visualized ribs appear intact. Glenohumeral acromioclavicular degenerative changes. Midline sternal wires Soft tissues: No suspicious soft tissue calcifications. IMPRESSION: No acute bony abnormality. Approved by: Bryon Nunez M.D. on 03/21/2025 at 14:44
[2025-03-21] MEDS: MORPHINE 2 MG/ML INJ IV (14:18)
--- NOTE | 2025-03-21 14:38 | ED_ITS ---
HPI - Extremity Injury (Upper) General Chief Complaint: Extremity Injury, Upper Stated Complaint: Fall, Shoulder injury Time Seen by Provider: 03/21/25 14:15 History of Present Illness HPI narrative: Patient is an 80-year-old male presenting today with left shoulder pain. He reports that he was on a ladder when he slipped he fell down about 4 steps his elbow got stuck and now has pretty severe left shoulder pain. No head injury no neck pain no loss of consciousness. No hip injury. Not having any other symptoms at this time. He does take aspirin daily. Related Data Home Medications ?Medication ?Instructions ?Recorded ?Confirmed aspirin 81 mg tablet,delayed 81 mg PO Q DAY ##0 03/24/22 release metoprolol tartrate 25 mg tablet 25 mg PO BID ##0 05/0203/24/22 tamsulosin 0.4 mg capsule (Flomax) 0.4 mg PO QDAY ##0 05/19/16 03/24/22 atorvastatin 40 mg tablet 40 mg PO BEDTIME 05/16/19 lisinopril 10 mg tablet 10 mg PO DAILY 02/22/2203/03 omeprazole 20 mg tablet,delayed 20 mg PO DAILY 2 03/24/22 release Previous Rx's ?Medication ?Instructions ?Recorded acetaminophen 325 mg capsule 650 mg (2 x 325 mg) PO QI D PRN 03/08/22 (Tylenol) pain #60 caps docusate sodium 100 mg capsule 100 mg PO BID #30 caps 03/08/22 (Colace) ibuprofen 200 mg tablet 400 mg (2 x 200 mg) PO Q6H # 60 tabs 03/08/22 Allergies Allergy/AdvReac Type Severity Reaction Status Date / Time metformin AdvReac Severe Shortness Verified 03/21/25 14:09 of breath Patient History Medical History (Updated 03/21/25 @ 16:47 by Abigail Tinoco DO) CAD (coronary artery disease) Enlarged prostate Melanoma Heart murmur Arthritis Former smoker Hyperlipidemia Pre-diabetes GERD (gastroesophageal reflux disease) HTN (hypertension) Surgical History (Updated 02/22/22 @ 10:55 by Hannah Salguero RN) Hx of bilateral cataract extraction S/P CABG x 5 (2014) Social History household members: spouse Smoking Status: Never smoker alcohol intake: current Smoking Status: Never smoker alcohol intake frequency: holidays/special occasions only Alcohol type: beer Exam Initial Vital Signs Initial Vital Signs: Vital Signs Temperature 98.7 F 03/21/25 14:01 Pulse Rate 73 03/21/25 14:01 Respiratory Rate 16 03/21/25 14:01 Blood Pressure 182/94 H 03/21/25 14:01 Pulse Oximetry 98 03/21/25 14:01 Oxygen Delivery Method Room Air 03/21/25 14:01 GENERAL: Alert pleasant 80-year-old male appears in HEENT: Head atraumatic,EOMI, pupils reactive, face symmetric, [moist] mucous membranes NECK: No vertebral tenderness no step-off CARDIOVASCULAR: Regular rate and rhythm without murmurs, rubs or gallops. RESPIRATORY: Breath sounds equal bilaterally, no wheezes rales or rhonchi. ABDOMEN: Soft, nontender. Normoactive bowel sounds all 4 quadrants. No guarding or rebound. EXTREMITIES: Normal range of motion, no clubbing or edema. Neurovascularly intact Right upper extremity does have significant anterior fullness of the shoulder with AC step-off. Distal radial pulse intact sensation over deltoid into NEUROLOGICAL: Alert and oriented x4.Normal gait and speech. Cranial nerves II through XII grossly intact. SKIN: Warm, dry, no laceration, no petechiae, no rashes or lesions. Procedures Orthopedic Joint Reduction Joint #1: Time of procedure: 16:35 Time Out Performed: Yes Side: right Joint Reduction Location: shoulder Analgesia: procedural sedation Technique used: direct manipulation Post-reduction neuro exam: intact Post-reduction vascular: intact Post Reduction X-Ray Obtained: Yes Post Reduction X-Ray Results: reduced Splint Applied: Yes Patient Tolerated Procedure: Well Orthopedic Splinting/Casting Injury #1: Side: right Upper Extremity Injury Location: shoulder Upper Extremity Immobilizer: sling/shoulder immobilizer Post splinting neuro exam: intact Post splinting vascular exam: intact Placed by: Nursing Procedural Sedation Time of procedure: 16:35 Consent signed: Yes Time out performed: Yes Indication: fracture/dislocation reduction ASA Class: II Mallampati Airway Classification: Class II IV Propofol dose (mg): 70 Intraservice time/total sedation time (min): 15 ED Sedation Level: Moderate (Concious) Patient Tolerated Procedure: Well Complications: hypoventilation Interventions: Assist by BVM Course Orders Ordered: ED Orders 03/21/25 14:15 XR shoulder RT 2+ views Stat 03/21/25 16:40 XR shoulder RT 2+ views Stat Discontinued Medications Hydromorphone HCl (Hydromorphone Hcl 0.5 Mg/0.5 Ml Syringe) 0.5 mg IV NOW ONE Stop: 03/21/25 14:52 Last Admin: 03/21/25 15:12 Dose: 0.5 mg Documented By: AI Morphine Sulfate (Morphine 2 Mg/Ml Inj) 2 mg IV NOW ONE Stop: 03/21/25 14:16 Last Admin: 03/21/25 14:18 Dose: 2 mg Documented By: AI Propofol (Propofol 200 Mg/20 Ml Vial) 70 mg 1 mg/kg (70 mg) IV NOW ONE Stop: 03/21/25 14:51 Last Admin: 03/21/25 16:30 Dose: 70 mg Vital Signs Vital signs: Vital Signs - 8 hr 03/21/25 14:01 03/21/25 14:03 03/21/25 14:05 Temperature 98.7 F Pulse Rate 73 75 75 Respiratory Rate 16 Blood Pressure 182/94 H Pulse Oximetry 98 98 98 Oxygen Delivery Method Room Air 03/21/25 14:05 03/21/25 14:23 03/21/25 14:30 Temperature Pulse Rate 68 Respiratory Rate 14 Blood Pressure 182/94 H 189/91 H Pulse Oximetry Oxygen Delivery Method 03/21/25 14:30 03/21/25 15:00 03/21/25 15:00 Temperature Pulse Rate 68 66 Respiratory Rate 13 18 Blood Pressure 181/93 H Pulse Oximetry 96 98 Oxygen Delivery Method 03/21/25 15:30 03/21/25 15:30 03/21/25 16:00 Temperature Pulse Rate 67 67 Respiratory Rate 21 17 Blood Pressure 201/91 H Pulse Oximetry 96 95 Oxygen Delivery Method 03/21/25 16:01 03/21/25 16:01 03/21/25 16:29 Temperature Pulse Rate 66 72 Respiratory Rate 16 16 Blood Pressure 190/86 H 148/75 H Pulse Oximetry 95 94 Oxygen Delivery Method 03/21/25 16:30 03/21/25 16:30 03/21/25 16:35 Temperature Pulse Rate 74 66 Respiratory Rate 21 Blood Pressure 172/87 H Pulse Oximetry 97 98 Oxygen Delivery Method 03/21/25 16:35 03/21/25 16:40 03/21/25 16:40 Temperature Pulse Rate 68 Respiratory Rate Blood Pressure 172/86 H 149/74 H Pulse Oximetry 96 Oxygen Delivery Method 03/21/25 16:45 03/21/25 16:45 03/21/25 17:00 Temperature Pulse Rate 70 70 Respiratory Rate 18 19 Blood Pressure 148/75 H Pulse Oximetry 89 L 94 Oxygen Delivery Method 03/21/25 17:00 Temperature Pulse Rate Respiratory Rate Blood Pressure 137/73 Pulse Oximetry Oxygen Delivery Method MDM - Extremity Injury (Upper) Imaging Data Extremity x-ray #1: Radiologist's Impression: ADDENDUMThis report includes an Addendum and supersedes previous reports for this exam. PROCEDURE: XR SHOULDER RT MIN 2V INDICATIONS: pain TECHNIQUE: 3 views of the shoulder were acquired. COMPARISON: [facility], , XR SHOULDER LT MIN 2V, 07/24/2023, 15:14. FINDINGS: Bones: No fractures or dislocations. No suspicious bony lesions. Visualized ribs appear intact. Glenohumeral acromioclavicular degenerative changes. Midline sternal wires Soft tissues: No suspicious soft tissue calcifications. IMPRESSION: No acute bony abnormality. Approved by: Bryon Nunez M.D. on 03/21/2025 at 14:44 ADDENDUM: Study was further reviewed at the request of the provider. On the transscapular Y-view, the humeral head does look displaced anterior/superior, and could reflect subluxation or anterior superior dislocation. On the frontal view however, humeral head is lateral to the coracoid process, excluding the more typical anterior inferior dislocation. Approved by: Bryon Nunez M.D. on 03/21/2025 at 15:11 Addendum Dictated By: Bryon Nunez MD Addendum Signed By: 03/21/251610 Addendum Cosigned By: DD/ TD/TT: 03/21/25 PROCEDURE: XR SHOULDER RT MIN 2V INDICATIONS: pain TECHNIQUE: 3 views of the shoulder were acquired. COMPARISON: [facility], CR, XR SHOULDER LT MIN 2V, 07/24/2023, 15:14. FINDINGS: Bones: No fractures or dislocations. No suspicious bony lesions. Visualized ribs appear intact. Glenohumeral acromioclavicular degenerative changes. Midline sternal wires Soft tissues: No suspicious soft tissue calcifications. IMPRESSION: No acute bony abnormality. Approved by: Bryon Nunez M.D. on 03/21/2025 at 14:44 Extremity x-ray #2: Radiologist's Impression: PROCEDURE: XR SHOULDER RT MIN 2V INDICATIONS: post reduction TECHNIQUE: 2 views of the shoulder were acquired. COMPARISON: [facility], CR, XR SHOULDER RT 2+ VIEWS, 03/21/2025, 14:11. FINDINGS: Bones: Transscapular-Y image shows anatomic positioning of the humeral head without dislocation. No fracture Soft tissues: No suspicious soft tissue calcifications. IMPRESSION: Excellent interval reduction. No complications Approved by: Bryon Nunez M.D. on 03/21/2025 at 15:59 MDM Narrative Medical decision making narrative: Patient is a 80-year-old male fall down ladder today elbow got stuck but not having elbow pain or dislocation full range of elbow actually. Has obvious shoulder fullness. X-ray initially was read as negative however clinically was a shoulder dislocation. He tolerated procedure sedation and reduction there was a pop felt during the reduction. Post procedure x-ray shows reduction. Patient tolerated procedure well but did require some BVM and woke up well. He is awake alert feeling much better. Discharge Plan Departure Patient Disposition: Home Clinical Impression: Anterior dislocation of right shoulder Instructions: DI for Shoulder Dislocation Activity Restrictions/Additional Instructions: *You have been diagnosed with right shoulder dislocated *What to do: At this time expect shoulder to be sore keep shoulder in sling next 24 hours then may remove you may take out at night sleep *Continue to take medications as directed Tylenol Motrin as needed for *Follow up with your primary care provider in 2-3 days or call [phone] *Return to ER if you should have increasing pain numbness tingling weak or any new, worsening or concerning symptoms Prescriptions: No Action aspirin 81 MG tablet,delayed release (DR/EC) 81 mg PO Q DAY Qty: 0 tamsulosin [Flomax] 0.4 MG capsule,extended release 24hr 0.4 mg PO QDAY Qty: 0 metoprolol tartrate 25 MG tablet 25 mg PO BID Qty: 0 atorvastatin 40 mg Tablet 40 mg PO BEDTIME lisinopril 10 mg Tablet 10 mg PO DAILY omeprazole 20 mg Tablet,Delayed Release (Dr/Ec) 20 mg PO DAILY ibuprofen 200 mg tablet 400 mg PO Q6H Qty: 60 0RF docusate sodium [Colace] 100 mg capsule 100 mg PO BID Qty: 30 0RF acetaminophen [Tylenol] 325 mg capsule 650 mg PO QID PRN (Reason: pain) Qty: 60 0RF Referrals: Brock Garcia MD [Primary Care Provider, Family Practice] Stand Alone Forms: Patient Portal/API
--- NOTE | 2025-03-21 16:40 | DI.RAD.S_ITS ---
PROCEDURE: XR SHOULDER RT MIN 2V INDICATIONS: post reduction TECHNIQUE: 2 views of the shoulder were acquired. COMPARISON: [facility], CR, XR SHOULDER RT 2+ VIEWS, 03/21/2025, 14:11. FINDINGS: Bones: Transscapular-Y image shows anatomic positioning of the humeral head without dislocation. No fracture Soft tissues: No suspicious soft tissue calcifications. IMPRESSION: Excellent interval reduction. No complications Approved by: Bryon Nunez M.D. on 03/21/2025 at 15:59
== END 2025-03-21 17:44 | disposition home or self-care (01) ==
PROVIDERS: Emergency Provider Emergency Medicine; Family Provider Family Medicine; PCP Family Medicine
DX: S43.014A Anterior dislocation of right humerus, initial encounter (principal); W01.0XXA Fall on same level from slipping, tripping and stumbling without subsequent striking against object, initial encounter; Z79.82 Long term (current) use of aspirin
CPT/HCPCS: 23650; 73030; 96374; 96375; 99152; 99284; J1171; J2270; J2704

== ENCOUNTER → 2025-04-13 18:36 | Outpatient (CLI) | payer MEDICARE, OTHER, SELFPAY ==
[2022-03-08 17:23] VITALS: BMI 21.9
--- NOTE | 2025-04-13 18:39 | DI.MRI.S_ITS ---
PROCEDURE: MR SHOULDER RT WO CON INDICATIONS: DISLOCATION TECHNIQUE: Noncontrast oblique coronal T2 fast spin echo with fat saturation, oblique sagittal T1 spin echo and T2 fast spin echo with fat saturation, axial T1 spin echo and T2 fast spin echo with fat saturation through the shoulder. COMPARISON: [facility], CR, XR SHOULDER RT 2+ VIEWS, 03/21/2025, 14:11. [facility], CR, XR SHOULDER RT 2+ VIEWS, 03/21/2025, 16:28. [facility], MR, MR SHOULDER RT WO CON, 03/26/2019, 11:25. FINDINGS: Image quality: Excellent. Rotator cuff: Full-thickness tearing of the supraspinatus tendon and nearly the complete infraspinatus tendon with proximal tendon retraction measuring up to 4.4 cm. The tear is more extensive when compared to the MRI from 03/26/2019. There is grade 2 fatty infiltration of the supraspinatus and infraspinatus muscles with superimposed edema compatible with superimposed strains. Edema within the teres minor muscle is also likely related to a low-grade strain. Mild distal teres minor tendinosis. Full- thickness tearing of the subscapularis tendon from its distal insertion with proximal tendon retraction measuring up to 2.9 cm. Grade 2-3 fatty infiltration of the subscapularis muscle with mild superimposed edema. Edema within the lateral belly of the deltoid muscle is compatible with a low-grade strain. Possible strain of the pectoralis major muscle that is not completely the included in the field of view of the exam. Bones and bursae: Hill-Sachs lesion at the posterior superior humeral head measures approximately 17 x 22 x 4 mm with relatively mild osseous edema. No acute glenoid fracture is seen. No significant loss of glenoid bone stock. Chronic traction cystic changes at the posterior superior humeral head and greater tuberosity near the rotator cuff tendon insertions. Diffuse grade 3-4 chondromalacia in the glenohumeral joint with marginal osteophytes and mild articular surface remodeling. Humeral head is high riding with narrowing of the acromial humeral interval. Moderate to severe degenerative changes at the acromioclavicular joint. A moderate glenohumeral effusion communicates with the subcoracoid and subacromial/subdeltoid bursa. Capsule and soft tissues: Diffuse labral degeneration and chronic degenerative tearing. Proximal biceps long head tendon is chronically torn and distally retracted. Mild edema is seen in the axillary recess and increased signal is seen near the humeral attachment of the anterior band of the inferior glenohumeral ligament suggesting prior capsular injury although a full-thickness defect is not definitely visualized. Middle glenohumeral ligament appears torn along with the subscapularis tendon. IMPRESSION: 1. Findings related to the recent anterior instability including a shallow mildly edematous Hill-Sachs lesion at the posterior superior humeral head. No glenoid fracture or significant loss of bone stock is seen. 2. Full-thickness tearing of the supraspinatus tendon and nearly the complete infraspinatus tendon at the distal insertions with approximately 4.4 cm of proximal tendon retraction. Mild supraspinatus and infraspinatus muscle atrophy with superimposed low-grade muscle strains. Humeral head is mildly high riding. 3. Full-thickness tearing of the subscapularis tendon at the distal insertion with proximal retraction of torn tendon fibers by up to 2.9 cm. Grade 2-3 fatty infiltration of the subscapularis muscle with superimposed low-grade strain. 4. Chronic complete tearing of the proximal biceps long head tendon with distal retraction. 5. Edema within the lateral belly of the deltoid muscle and the partially included pectoralis major muscle is suspicious for low-grade muscle strains. 6. 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 Diffuse labral degeneration and chronic degenerative tearing. 7. 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 8. Moderate glenohumeral effusion communicates with the subacromial/subdeltoid bursa as well as the subcoracoid bursa. 9. Mildly increased signal in the inferior glenohumeral ligament near the humeral attachment may indicate a sprain/partial tear. Full-thickness tearing of the distal middle glenohumeral ligament. Approved by: Marco Gandhi M.D. on 04/14/2025 at 9:11
== END ==
LOC: MRI 18:36
PROVIDERS: Family Provider Family Medicine; PCP Family Medicine; Referring Provider Family Medicine; Visit Provider Family Medicine
DX: S43.004D Unspecified dislocation of right shoulder joint, subsequent encounter (principal); M75.121 Complete rotator cuff tear or rupture of right shoulder, not specified as traumatic; S46.111A Strain of muscle, fascia and tendon of long head of biceps, right arm, initial encounter; M62.511 Muscle wasting and atrophy, not elsewhere classified, right shoulder; M94.211 Chondromalacia, right shoulder; M17.11 Unilateral primary osteoarthritis, right knee; M25.461 Effusion, right knee; X58.XXXD Exposure to other specified factors, subsequent encounter
CPT/HCPCS: 73221